=== PATIENT | female | born 2005 | race Caucasian/White ===

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

== ENCOUNTER 2023-02-02 14:14 | Outpatient (REF) | payer MEDICAID, SELFPAY ==
[2023-02-02 15:41] LABS: Anion Gap 12 (12-20); Blood Urea Nitrogen 14 mg/dL (9-16); Calcium 9.3 mg/dL (8.4-10.2); Carbon Dioxide 25 mmol/L (22-29); Chloride 106 mmol/L (96-108); Estimated Glomerular Filt Rate > 60; Glucose Random 90 mg/dL (60-115); Potassium 4.4 mmol/L (3.3-5.1); Sodium 139 mmol/L (135-145)
[2023-02-04 21:08] LABS: Prolactin 30.9 ng/mL
== END 2023-02-02 14:15 | disposition home or self-care (01) ==
LOC: HO.LAB 14:14
PROVIDERS: Visit Provider Psychiatry & Neurology Neurology
DX: G40.909 Epilepsy, unspecified, not intractable, without status epilepticus (principal)
CPT/HCPCS: 36415; 80048; 84146

== ENCOUNTER 2023-03-17 07:55 | Outpatient (REF) | payer MEDICAID, SELFPAY | END 2023-03-17 07:56 | disposition home or self-care (01) | LOC: HO.MRI 07:55 | PROVIDERS: PCP Registered Nurse; Visit Provider Psychiatry & Neurology Neurology | DX: D35.2 Benign neoplasm of pituitary gland (principal) | CPT/HCPCS: 70551 ==

== ENCOUNTER 2023-06-14 23:16 | Emergency (ER) | payer MEDICAID, SELFPAY ==
[2023-06-14 23:21] VITALS: BP 112/62; PULSE 84; RESP 16; TEMP 36.7; O2SAT 99; BMI 49.3
--- NOTE | 2023-06-15 00:30 | ED_ITS ---
HPI - Skin/Abscess/Foreign Bdy General Chief complaint: Skin/Abscess/Foreign Body Stated complaint: infect abscess Time Seen by Provider: 06/15/23 00:25 Source: patient and family Mode of arrival: ambulatory Limitations: no limitations History of Present Illness HPI narrative: Patient comes to the emergency room accompanied by her mother. Patient states that she has an abscess on the left groin area. Patient states it is red , warm to touch, very painful. Denies any discharge. Patient denies fever chills Related Data Home Medications Medication Instructions Recorded Confirmed melatonin 5 mg tablet 5 - 10 mg PO BEDTIME PRN Sleep 12/07/22 12/07/22 Previous Rx's Medication Instructions Recorded levetiracetam 1,000 mg tablet 1,000 mg PO BID #60 tabs 12/07/22 (Keppra) sulfamethoxazole 800 1 tab PO BID #14 tabs 06/15/23 mg-trimethoprim 160 mg tablet (Bactrim DS) Allergies Allergy/AdvReac Type Severity Reaction Status Date / Time No Known Allergies Allergy Verified 12/06/22 13:51 [No Known Allergies*] Review of Systems Review of Systems: Constitutional : No Weight loss, No Fever, No Chills, No Night Sweats, No Fatigue, No Malaise ENT/Mouth : No Hearing loss, No Ear Pain, No Nasal Congestion, No Sinus Pain, No Hoarseness, No sore throat, No Rhinorrhea, No Swallowing Difficulty Eyes: No Eye Pain, No Swelling, No Redness, No Foreign Body, No Discharge, No Vision Changes Cardiovascular : No Chest Pain, No SOB, No Dyspnea on Exertion, No Orthopnea, No Edema, No Palpitations Respiratory : No Cough, No Sputum, No Wheezing, No Smoke Exposure, No Dyspnea Gastrointestinal : No Nausea, No Vomiting, No Diarrhea, No Constipation, No abdominal Pain, No Hematochezia, No Melena Genitourinary : no irregular bleeding, No Dysuria, No Urinary Frequency, No Hematuria, No Urinary Incontinence, No Urgency, No Flank Pain, No Urinary Flow Changes, No Hesitancy Musculoskeletal : No joint pain, No Myalgias, No Joint Swelling Skin : Complaining of an abscess in the labs groin area Neuro : No Weakness, No Numbness, No Paresthesias, No Loss of Consciousness, No Dizziness, No Headache Psych : No Anxiety/Panic, No Depression, No SI/HI/AH/VH, No Social Issues, Heme/Lymph: No Bruising, No Bleeding,No Lymphadenopathy Endocrine : No Polyuria, No Polydipsia, No Temperature Intolerance [facility] Past Medical History Medical History Seizure disorder Asthma Surgical History No pertinent past surgical history Social History Social History (Updated 12/06/22 @ 21:29 by Radha Bradshaw MD) Household Members: Family Housing: Apartment Do you presently have visiting nurse or other home services: No Alcohol intake: never Patient Tobacco Use Status: Never used Tobacco e-Cigarette/Vaping Use: Never Used Advance Directives: No Advance Directives Information Provided: Yes service: No Current occupational status: disabled Physical Exam Vital Signs: Vital Signs: Last Vital Signs Temp 98.4 F 06/15/23 00:41 Pulse 98 06/15/23 00:41 Resp 16 06/15/23 00:41 BP 103/58 L 06/15/23 00:41 Pulse Ox 97 06/15/23 00:41 O2 Del Method Room Air 06/15/23 00:41 BMI result Body Mass Index 49.3 Const: Other: Appearance: Alert. Oriented X3. No acute distress. Eyes: Pupils equal, round and reactive to light. ENT: Pharynx normal. Neck: Normal inspection. Neck supple. No lymph nodes noted. No crepitus CVS: Normal heart rate and rhythm. Pulses normal. Normal S1 and S2 Respiratory: No respiratory distress. Breath sounds normal. No Wheezing. No rales Abdomen: Soft and nontender. No rigidity. No distention. Skin: Skin warm and dry. Patient has a furuncle in the suprapubic area in the left side. Bedside ultrasound does not show any fluid accumulation/abscess Extremities: No lower extremity edema. No Lacerations. No Rash Neuro: Oriented X 3. No motor deficit. No sensory deficit. Moving all extremities. No slurred speech. CN 2 through 12 grossly intact Psych: calm, cooperative, normal affect Course Course Course Narrative: -I discussed the physical exam with the patient and with her mother. At this time, it is not an abscess, there is no material that could possibly be drained. Patient has significant scarring from old abscesses/furuncles. Discussed with the patient to follow-up with her primary care physician, patient may need a referral to Dermatology. Patient was given the 1st dose of antibiotic in the ED. Medical Decision Making Medical Decision Making MDM Narrative: -patient is adamant that she is not . Patient was given the 1st dose of Bactrim DS in the ED Differential Diagnosis Differential Diagnoses: The differential diagnosis associated with the presentation includes (Furuncle, abscess, cellulitis) Discharge Plan Discharge Clinical Impression: Furuncle Patient Disposition: Home, Self-Care Instructions: Furunculosis and Carbunculosis (ED) Additional Instructions: Please follow-up with your primary care physician tomorrow. If you have any worsening or new symptoms, please return to the emergency room or call 911 Prescriptions: New sulfamethoxazole-trimethoprim [Bactrim DS] 800-160 mg tablet 1 tab PO BID Qty: 14 0RF No Action melatonin 5 mg Tablet 5 - 10 mg PO BEDTIME PRN (Reason: Sleep) levetiracetam [Keppra] 1,000 mg Tablet 1,000 mg PO BID Qty: 60 2RF
[2023-06-15 00:41] VITALS: BP 103/58; PULSE 98; RESP 16; TEMP 36.9; O2SAT 97
[2023-06-15] MEDS: Sulfamethox/Trimeth 800/160 TABLET 1 TAB PO (01:20)
--- NOTE | 2023-06-15 01:23 | PC.NURSE ---
pt a&o,no sob or chest pain, reviewed discharge instructions with pt. pt verbalized understanding.
== END 2023-06-15 01:25 | disposition home or self-care (01) ==
PROVIDERS: Emergency Provider Emergency Medicine
DX: L02.224 Furuncle of groin (principal); Z79.899 Other long term (current) drug therapy
CPT/HCPCS: 99283; 99284

== ENCOUNTER 2023-11-19 09:19 | Emergency (ER) | payer MEDICAID, SELFPAY ==
[2023-11-19 09:25] VITALS: BP 133/84; PULSE 79; RESP 16; TEMP 36.4; O2SAT 98; BMI 40.4
[2023-11-19 10:54] LABS: Appearance Urine Turbid; Color Urine Yellow; Glucose Urine UA Negative (Negative); Leukocyte Esterase Urine Large (3+) (Negative); Nitrite Urine Negative (Negative); PH 5.5 (5.0-9.0); UMIC TRIGGER UACC YES; Urine Blood Trace (Negative); Urine Ketones Negative (Negative); Urine Protein Trace mg/dL (Neg-Trace)
--- NOTE | 2023-11-19 10:54 | ED_ITS ---
HPI - Female Genitourinary General Chief complaint: Urogenital-Female Stated complaint: Genital issues Time Seen by Provider: 11/19/23 09:26 Source: patient and RN notes reviewed Mode of arrival: ambulatory Limitations: no limitations History of Present Illness HPI Narrative: This is a 18-year-old female, with no known medical problems, presenting to the emergency department complaints of vaginal itchiness, and fullness x2 days. Patient also endorses some dysuria, and urinary urgency. Denies frequency or hematuria. She states that her last menstrual period was November 04. She states that her menses are typically regular. She states that she has not been sexually active in the last 2 years. Denies risk of STI or . She denies using any [id number] medications at home to treat her current symptoms. Denies history of similar symptoms. She has never had a pelvic examination performed. She does not have an OBGYN. No other complaints or concerns at this time. MD elicited complaint: dysuria and pelvic pain (Pressure) Onset (ago): day(s) Severity: moderate Female Urogenital Radiation: Non-Radiating Consistency: constant Vaginal discharge: none Vaginal bleeding: none Urinary symptoms: Dysuria and Urgency Exacerbating factors: none Relieving factors: none Associated symptoms: denies other symptoms Treatment prior to arrival: none Sexual activity: No Patient : No Related Data Home Medications Medication Instructions Recorded Confirmed melatonin 5 mg tablet 5 - 10 mg PO BEDTIME PRN Sleep 12/07/22 12/07/22 Previous Rx's Medication Instructions Recorded levetiracetam 1,000 mg tablet 1,000 mg PO BID #60 tabs 12/07/22 (Keppra) sulfamethoxazole 800 1 tab PO BID #14 tabs 06/15/23 mg-trimethoprim 160 mg tablet (Bactrim DS) doxycycline hyclate 100 mg capsule 100 mg PO BID 14 days #28 caps 11/19/23 fluconazole 150 mg tablet 150 mg PO Q3D 2 doses #2 tabs 11/19/23 metronidazole 500 mg tablet 500 mg PO BID 14 days #28 tabs 11/19/23 Allergies Allergy/AdvReac Type Severity Reaction Status Date / Time No Known Allergies Allergy Verified 12/06/22 13:51 [No Known Allergies*] Review of Systems Review of Systems: Yes all other systems are reviewed and are negative Constitutional: Constitutional: Reports as per [facility] Past Medical History Attestation statement: The following information was validated with the patient. Medical History Seizure disorder Asthma Surgical History No pertinent past surgical history Social History Social History Household Members: Family Housing: Apartment Do you presently have visiting nurse or other home services: No Alcohol intake: never Patient Tobacco Use Status: Never used Tobacco e-Cigarette/Vaping Use: Never Used service: No Current occupational status: disabled Physical Exam Vital Signs: Vital Signs: Last Vital Signs Temp 98 F 11/19/23 12:00 Pulse 83 11/19/23 12:00 Resp 16 11/19/23 12:00 BP 126/77 11/19/23 12:00 Pulse Ox 100 11/19/23 12:00 O2 Del Method Room Air 11/19/23 12:00 BMI result Body Mass Index 40.4 Const: General: cooperative, comfortable and no acute distress Orientation/consciousness: patient oriented x3 Limitations: no limitations HEENT: Head: Yes normal to inspection, Yes normocephalic and Yes atraumatic Ears: hearing grossly normal bilaterally General nose exam: Normal external nose present Face and sinus: Yes normal facial exam Mouth: Normal oral and palatal mucosa present, oropharynx normal and moist mucous membranes Throat: Yes posterior oropharynx normal Eyes: General: appearance normal, both eyes and all related structures Eyelids: Yes eyelids normal Conjunctivae: conjunctivae normal Sclerae: sclerae normal Pupils: Equal, round and reactive pupils present EOM: EOMs intact bilaterally Neck: Neck: Yes normal visual inspection, Yes full ROM and Yes no lymphadenopathy Lymphatic: no lymphadenopathy noted Chest: Chest palpation & inspection: normal inspection of the chest Resp: Effort & Inspection: normal respiratory effort and able to speak in complete sentences Auscultation: clear to auscultation bilaterally, no crackles, no rales, no rhonchi and no wheezes Cardio: Rate: regular rate Rhythm: regular rhythm Heart sounds: S1 normal heart sound present and S2 normal heart sound present GI: Inspection: Yes normal to inspection : Other: Pelvic examination performed with mary Moreno present at all times. Patient has thick white vaginal discharge with mild vaginal edema noted in the vaginal vault. No bleeding, or lesions noted. Mild cervical motion tenderness. External Female Exam: normal appearance of the urethra Speculum Exam - Vagina: normal appearance of the vagina and normal palpation Speculum Exam - Cervix: normal appearance of the cervix and Cervical os closed Bimanual exam- vagina & uterus: normal palpation Skin: General skin exam: no rashes or lesions noted Trauma: no lacerations or abrasions Wounds: no wounds Neuro: General: patient oriented x3 and moves all extremities Cranial nerves: Yes Equal, round and reactive pupils present Extrem: General: Yes normal to inspection Right upper extremity: normal to inspection Left upper extremity: normal to inspection Right lower extremity: normal to inspection Left lower extremity: normal to inspection Medications Administered Discontinued Medications Generic Name Dose Route Start Last Admin Trade Name Freq PRN Reason Stop Dose Admin Ceftriaxone Sodium 500 mg/ 0 mg 11/19/23 12:11 11/19/23 12:32 Lidocaine HCl 1 ml IM 11/19/23 12:12 500 kit ONCE ONE Administration Medical Decision Making Medical Decision Making [facility] Narrative: This is a 18-year-old female presenting to the emergency department for evaluation of vaginal fullness in itchiness x2 days. On arrival, patient nontoxic appearing, vital signs within normal limits. Differential diagnoses include bacterial vaginosis, candidiasis, cystitis, pelvic inflammatory disease, pelvic mass. Less likely gonorrhea/chlamydia. Patient requesting HIV testing, also added syphilis. She is not sexually active at this time therefore unlikely. Pelvic examination with concerns for PID vs. samm. Will treat with both. Given return precautions. Pt stable for d/c. Differential Diagnosis Differential Diagnoses: The differential diagnosis associated with the presentation includes See above Admission/Observation Consideration of admission/observation: Escalation of care including admission/observation considered Patient would have been admitted to the hospital had her work up had any findings where hospital admission was appropriate and her clinical presentation warranted hospital admission. Lab Data [facility] Lab Attestation statement: I reviewed the patient's lab results. Urine is contaminated. Will await culture. Labs: Lab Results 11/19/23 11/19/23 11/19/23 Range/Units 10:24 10:45 12:07 Beta HCG, Quant < 2 mIU/mL Urine Color Yellow Urine Appearance Turbid Urine pH 5.5 (5.0-9.0) Ur Specific [place] 1.020 (1.005-1.025) Urine Protein Trace (Neg-Trace) mg/dL Urine Glucose (UA) Negative (Negative) mg/dL Urine Ketones Negative (Negative) mg/dL Urine Blood Trace H (Negative) Urine Nitrite Negative (Negative) Ur Leukocyte Esterase Large (3+) H (Negative) Urine RBC 3-5 H (0-2) /HPF Urine WBC >50 H (0-5) /HPF Ur Squamous Epith Cells 11-20 (0-2) /HPF Urine Bacteria 2+ (None Seen) Hyaline Casts 0-2 (0-2) /LPF Urine Test NEGATIVE (NEGATIVE) T.pallidum Ab (EIA) Nonreactive (Nonreactive) Chlam trachomat DNA PCR NOT DETECTED (Not Detect.) HIV 1&2 Ab/P24 Ag 4thGn Nonreactive (Nonreactive) N.gonorrhoeae DNA (PCR) NOT DETECTED (Not Detect.) Radiology Impression Discussion of test interpretation with radiology: I have reviewed the radiologist's reading. External Record Review External record reviewed: Inpatient record, Office record, Outpatient record, Prior outpatient labs, Prior outpatient radiology, Primary care record and Outside ED record Discharge Plan Discharge Clinical Impression: Vaginitis Patient Disposition: Home, Self-Care Instructions: Vaginal Discharge (ED) Additional Instructions: Your seen in the emergency department due to vaginal discomfort. You have evidence of yeast infection and possible pelvic inflammatory disease. I am treating you with several medications. It is very important that you take all medications prescribed to you today as directed. We will call you with any normal results from your pelvic examination performed today. It is very important that you see the OBGYN, I would call today to make an appointment. If any new or worsening symptoms occur including but not limited to worsening pain, itchiness, redness, swelling, chest pain, shortness of breath, fevers or chills, abdominal pain, please return for re-evaluation. Prescriptions: New fluconazole 150 mg tablet 150 mg PO Q3D Qty: 2 0RF Rx Instructions: may repeat second dose 72 hrs after first dose if symptoms persist doxycycline hyclate 100 mg capsule 100 mg PO BID 14 Days Qty: 28 0RF metronidazole 500 mg tablet 500 mg PO BID 14 Days Qty: 28 0RF No Action melatonin 5 mg Tablet 5 - 10 mg PO BEDTIME PRN (Reason: Sleep) levetiracetam [Keppra] 1,000 mg Tablet 1,000 mg PO BID Qty: 60 2RF sulfamethoxazole-trimethoprim [Bactrim DS] 800-160 mg tablet 1 tab PO BID Qty: 14 0RF Referrals: [facility] Services [Provider Group] Stand Alone Forms: Work/School Release Interventions: ED Discharge Assessment Last Done: 11/19/23 12:38 Discharge Date/Time: 11/19/23 12:38
[2023-11-19 10:55] LABS: UPreg QC Valid YES; Urine Pregnancy NEGATIVE (NEGATIVE)
[2023-11-19 11:00] LABS: HCG Quantitative < 2 mIU/mL
[2023-11-19 11:05] LABS: HIV AB/AG Nonreactive (Nonreactive); HIV Num 1 0.06 S/CO (0.00-0.99); Syphilis Screen Nonreactive (Nonreactive)
[2023-11-19 11:08] LABS: Bacteria Urine 2+ (None Seen); Hyaline Casts Urine 0-2 /LPF (0-2); UACC Culture Trigger YES; WBC Urine >50 /HPF (0-5)
[2023-11-19 12:00] VITALS: BP 126/77; PULSE 83; RESP 16; TEMP 36.6; O2SAT 100
[2023-11-19] MEDS: cefTRIAXone sodium 500 MG, Lidocaine HCl 1 % MPF 1 ML IM (12:32)
[2023-11-19 13:49] LABS: CT PCR NOT DETECTED (Not Detect.); NG PCR NOT DETECTED (Not Detect.)
[2023-11-20 12:05] LABS: BV Int Neg Control Negative (Negative); BV Int Pos Control Positive (Positive)
== END 2023-11-19 12:38 | disposition home or self-care (01) ==
PROVIDERS: Physician Assistant Medical; Emergency Provider Emergency Medicine
DX: N76.0 Acute vaginitis (principal)
CPT/HCPCS: 0353U; 36415; 81001; 81025; 84702; 86780; 87086; 87389; 87480; 87510; 87660; 96372; 99284; J0696

== ENCOUNTER 2023-11-20 09:34 | Emergency (ER) | payer MEDICAID, SELFPAY ==
[2023-11-20 09:52] VITALS: BP 123/78; PULSE 83; RESP 16; TEMP 36.2; O2SAT 99; BMI 58.6
--- NOTE | 2023-11-20 11:34 | ED_ITS ---
HPI - General Adult General Chief complaint: General Medical Stated complaint: Yeast infection Time Seen by Provider: 11/20/23 10:59 Source: patient Mode of arrival: ambulatory Limitations: no limitations History of Present Illness HPI narrative: 18-year-old female with a history of obesity presents the ER with complaints of vaginal yeast infection and skin infection. Patient reports she was seen here yesterday. She was diagnosed with vaginitis and was treated with fluconazole. She also is being treated currently for PID. She reports that she has a rash on both of her thighs and in her abdominal fold which is quite painful which prompted her to return to the emergency room. She believes that she needs a topical medication to treat this. Of note patient is obese. She reports that she has been tested several times for diabetes in his negative. She reports she was tested less than 1 year ago and had a normal A1c. Related Data Home Medications Medication Instructions Recorded Confirmed melatonin 5 mg tablet 5 - 10 mg PO BEDTIME PRN Sleep 12/07/22 12/07/22 Previous Rx's Medication Instructions Recorded levetiracetam 1,000 mg tablet 1,000 mg PO BID #60 tabs 12/07/22 (Keppra) sulfamethoxazole 800 1 tab PO BID #14 tabs 06/15/23 mg-trimethoprim 160 mg tablet (Bactrim DS) doxycycline hyclate 100 mg capsule 100 mg PO BID 14 days #28 caps 11/19/23 fluconazole 150 mg tablet 150 mg PO Q3D 2 doses #2 tabs 11/19/23 metronidazole 500 mg tablet 500 mg PO BID 14 days #28 tabs 11/19/23 clotrimazole 1 % topical cream 1 appl topical BID 4 weeks #30 11/20/23 grams nystatin 100,000 unit/gram topical 1 appl topical BID #30 grams 11/20/23 powder Allergies Allergy/AdvReac Type Severity Reaction Status Date / Time No Known Allergies Allergy Verified 12/06/22 13:51 [No Known Allergies*] Review of Systems Review of Systems: Yes all other systems are reviewed and are negative Constitutional: Constitutional: Reports no additional constitutional complaints, Denies body ache(s), Denies chills, Denies fever(s), Denies headache(s) and Denies weakness Eyes: Eyes: Reports no additional eye complaints and Denies change in vision ENT: Reports system reviewed and no additional complaints, except as documented, Denies dizziness, Denies headache(s), Denies nasal congestion, Denies nasal discharge and Denies neck pain Cardiovascular: Cardiovascular: Reports no additional cardiovascular complaints, Denies chest pain, Denies leg edema and Denies dyspnea Respiratory: Respiratory: Reports no additional respiratory complaints, Denies cough and Denies dyspnea Gastrointestinal: Gastrointestinal: Reports no additional gastrointestinal complaints, Denies abdominal pain, Denies diarrhea, Denies nausea and Denies vomiting Genitourinary: Genitourinary: Reports no additional female genitourinary complaints and Denies urinary incontinence Musculoskeletal: Musculoskeletal: Reports no additional musculoskeletal complaints, Denies back pain, Denies arthralgias, Denies joint swelling, Denies neck pain, Denies numbness and Denies tingling Integumentary/Breasts: Skin/Breast: Reports system reviewed and no additional complaints, except as docu and Reports rash Neurologic: Reports system reviewed and no additional complaints, except as documented, Denies Abnormal speech present, Denies dizziness, Denies headache(s), Denies numbness, Denies tingling and Denies weakness PMFSH Past Medical History Attestation statement: The following information was validated with the patient. Source: old records reviewed and nursing notes reviewed Medical History Seizure disorder Asthma Surgical History No pertinent past surgical history Social History Social History Household Members: Family Housing: Apartment Do you presently have visiting nurse or other home services: No Alcohol intake: never Patient Tobacco Use Status: Never used Tobacco e-Cigarette/Vaping Use: Never Used Advance Directives: No Advance Directives Information Provided: No service: No Current occupational status: disabled Physical Exam ED Vital Signs: Vital Signs - 24 hr 11/20/23 09:52 Temperature 97.2 F Pulse Rate 83 Respiratory Rate 16 Blood Pressure 123/78 Pulse Oximetry 99 Oxygen Delivery Method Room Air BMI result Body Mass Index 58.6 Const General: cooperative, healthy appearing, comfortable and no acute distress Orientation/consciousness: patient oriented x3 Limitations: no limitations HENMT Head: Yes normal to inspection Ears: hearing grossly normal bilaterally General nose exam: Normal external nose present Face and sinus: Yes normal facial exam Mouth: Normal oral and palatal mucosa present Throat: Yes posterior oropharynx normal Eyes General: appearance normal, both eyes and all related structures Pupils: Equal, round and reactive pupils present Neck Neck: Yes normal visual inspection Chest Chest palpation & inspection: normal inspection of the chest Resp Effort & Inspection: normal respiratory effort Auscultation: clear to auscultation bilaterally Cardio Rate: regular rate Rhythm: regular rhythm Peripheral pulses: Peripheral pulses 2+ throughout GI Inspection: Yes normal to inspection Palpation (GI): Soft to palpation and nontender Auscultation: normal bowel sounds Back/Spine/Pelvis Thoracic/Lumbar Spine: thoracic and lumbar spine normal to inspection Skin Other: erythema/excoriation to both upper/inner thighs and in her abdominal folds. No extension to the perineum Neuro General: patient oriented x3, no focal motor deficits and normal sensation to monofilament Cranial nerves: Yes Equal, round and reactive pupils present Cognition (Neuro): normal cognition Speech: No Abnormal speech present Gait exam (Neuro): Normal gait present Motor exam (neuro): 5/5 motor strength present throughout Extrem General: Yes normal to inspection Medical Decision Making Medical Decision Making MDM Narrative: 18-year-old female with a history of obesity presents the ER with complaints of vaginal yeast infection and skin infection. Patient reports she was seen here yesterday. She was diagnosed with vaginitis and was treated with fluconazole. She also is being treated currently for PID. She reports that she has a rash on both of her thighs and in her abdominal fold which is quite painful which prompted her to return to the emergency room. She believes that she needs a topical medication to treat this. Of note patient is obese. She reports that she has been tested several times for diabetes in his negative. She reports she was tested less than 1 year ago and had a normal A1c. erythema/excoriation to both upper/inner thighs and in her abdominal folds. No extension to the perineum Will add clotrimazole and nystatin Differential Diagnosis Differential Diagnoses: The differential diagnosis associated with the presentation includes skin yeast infection Low concern for necrotizing fasciitis, Olivire's gangrene Admission/Observation Consideration of admission/observation: Escalation of care including admission/observation considered Low concern for necrotizing fasciitis, Olivier's gangrene requiring urgent imaging and surgical consultation External Record Review External record reviewed: Outside ED record Prescription Management I considered prescription management with: Antibiotic Discharge Plan Discharge Clinical Impression: Skin yeast infection Patient Disposition: Home, Self-Care Instructions: Skin Yeast Infection (ED) Additional Instructions: Continue your other medications Apply the nystatin powder to the abdominal folds Apply the clotrimazole to the skin areas Prescriptions: New nystatin 100,000 unit/gram powder 1 appl topical BID Qty: 30 0RF clotrimazole 1 % cream 1 appl topical BID 28 Days Qty: 30 0RF No Action melatonin 5 mg Tablet 5 - 10 mg PO BEDTIME PRN (Reason: Sleep) levetiracetam [Keppra] 1,000 mg Tablet 1,000 mg PO BID Qty: 60 2RF sulfamethoxazole-trimethoprim [Bactrim DS] 800-160 mg tablet 1 tab PO BID Qty: 14 0RF fluconazole 150 mg tablet 150 mg PO Q3D Qty: 2 0RF Rx Instructions: may repeat second dose 72 hrs after first dose if symptoms persist doxycycline hyclate 100 mg capsule 100 mg PO BID 14 Days Qty: 28 0RF metronidazole 500 mg tablet 500 mg PO BID 14 Days Qty: 28 0RF Referrals: [facility] [Primary Care Provider] - 1 week Stand Alone Forms: Work/School Release Interventions: ED Discharge Assessment Last Done: 11/20/23 11:56 Discharge Date/Time: 11/20/23 11:56
== END 2023-11-20 11:56 | disposition home or self-care (01) ==
PROVIDERS: Emergency Provider Student in an Organized Health Care Education/Training Program
DX: R21 Rash and other nonspecific skin eruption (principal); N76.0 Acute vaginitis
CPT/HCPCS: 99283

== ENCOUNTER 2024-02-10 17:14 | Emergency (ER) | payer MEDICAID, SELFPAY ==
--- NOTE | 2024-02-10 17:38 | ED.GENADULT ---
HPI - General Adult General Chief complaint: Extremity Injury, Lower Stated complaint: left toe swollen Time Seen by Provider: 02/10/24 17:43 Source: patient Mode of arrival: ambulatory Limitations: no limitations History of Present Illness ED Provider: Shaneka AREVALO HPI narrative: 19 year old female pmh asthma, seizure disorder, obesity presents with left 1st digit toe pain after receiving a pedicure yesterday. Rates the pain a 4/10. Reports the lady accidentally cut her. No fevers, chills, nausea, vomiting, difficulty moving toes, numbness, tingling, drainage, cp, sob Related Data Home Medications ?Medication ?Instructions ?Recorded ?Confirmed melatonin 5 mg tablet 5 - 10 mg PO BEDTIME PRN Sleep 12/07/22 12/07/22 Previous Rx's ?Medication ?Instructions ?Recorded levetiracetam 1,000 mg tablet 1,000 mg PO BID #60 tabs 12/07/22 (Keppra) sulfamethoxazole 800 1 tab PO BID #14 tabs 06/15/23 mg-trimethoprim 160 mg tablet (Bactrim DS) doxycycline hyclate 100 mg capsule 100 mg PO BID 14 days #28 caps 11/19/23 fluconazole 150 mg tablet 150 mg PO Q3D 2 doses #2 tabs 11/19/23 metronidazole 500 mg tablet 500 mg PO BID 14 days #28 tabs 11/19/23 clotrimazole 1 % topical cream 1 appl topical BID 4 weeks #30 11/20/23 grams nystatin 100,000 unit/gram topical 1 appl topical BID #30 grams 11/20/23 powder cephalexin 500 mg tablet 500 mg PO Q6H 10 days #40 tabs 02/10/24 doxycycline hyclate 100 mg capsule 100 mg PO BID 10 days #20 caps 02/10/24 Allergies Allergy/AdvReac Type Severity Reaction Status Date / Time No Known Allergies Allergy Verified 02/10/24 17:41 [No Known Allergies*] Review of Systems Review of Systems: Yes all other systems are reviewed and are negative PMFSH Past Medical History Attestation statement: The following information was validated with the patient. Source: old records reviewed and nursing notes reviewed Medical History Seizure disorder Asthma Surgical History No pertinent past surgical history Social History Social History Household Members: Family Housing: Apartment Do you presently have visiting nurse or other home services: No Alcohol intake: never Patient Tobacco Use Status: Never used Tobacco e-Cigarette/Vaping Use: Never Used service: No Current occupational status: disabled Physical Exam ED Vital Signs: Vital Signs - 24 hr 02/10/24 17:39 Temperature 97.8 F Pulse Rate 77 Respiratory Rate 18 Blood Pressure 144/88 H Pulse Oximetry 100 Oxygen Delivery Method Room Air BMI result Body Mass Index 50.3 vss Appearance: Alert.? Oriented X3.? No acute distress.? Head: Normocephalic, atraumatic, no step-offs or deformities Eyes: Pupils equal, round and reactive to light.? CVS: Normal heart rate and rhythm.? Pulses normal.? Respiratory: No respiratory distress.? Breath sounds normal.? Abdomen: Soft and nontender.? Skin: Skin warm and dry.? Normal skin color.? Normal skin turgor.?+ left great toe w/ erythema & warmth surrounding cuticle. Extremities: No lower extremity edema.? No calf ttp. 5/5 strength to bilateral upper and lower extremities 2+ DP,AT,PT equal and bl Back: No midline tenderness, no C-spine tenderness, full range of motion, no CVA tenderness bilaterally Neuro: Oriented X 3.? No motor deficit.? No sensory deficit. CN 2-12 intact Course Course Course Narrative: This is an RME done by BO Edmondson: Additional HPI, ROS, PE not included below will be deferred to primary provider. 19 year old female pmh asthma, seizure disorder, obesity presents with left 1st digit toe pain after receiving a pedicure yesterday. Rates the pain a 4/10. Reports the lady accidentally cut her. No fevers, chills, nausea, vomiting, difficulty moving toes, numbness, tingling, drainage, cp, sob Medical Decision Making Medical Decision Making MDM Narrative: 19 yo f presents w/ toe pain sp pedicure PE left great toe w/ erythema & warmth surrounding cuticle. Concerns for cellulitis with paronychia. No signs of abscess. No signs of gangrene, necrotizing infection, threat to Bolanos or neurovascular compromise. Plan will discharge from triage with antibiotics. Patient agreeable to this. Educated patient on diagnosis and treatment plan, answered all question, patient verbalizes understanding. At this time patient will be discharged home, advised to return with new or worsening symptoms. Educated on worrisome signs and symptoms and when to return. At this time I feel comfortable discharge home. Differential Diagnosis Differential Diagnoses: The differential diagnosis associated with the presentation includes Concerns for cellulitis with paronychia. No signs of abscess. No signs of gangrene, necrotizing infection, threat to Bolanos or neurovascular compromise. Admission/Observation Consideration of admission/observation: Escalation of care including admission/observation considered External Record Review External record reviewed: Office record, Outpatient record, Prior outpatient labs, Prior outpatient radiology and Primary care record Prescription Management I considered prescription management with: Antibiotic Discharge Plan Discharge Clinical Impression: Cellulitis, Paronychia of great toe Patient Disposition: Home, Self-Care Instructions: Paronychia (ED), Cellulitis (ED) Additional Instructions: Take your medications as prescribed. If you were prescribed antibiotics today, it is important that you take your medication to their entirety, do not skip any doses, do not finish them early. Follow-up with your primary care provider this week. Return to the emergency department with new or worsening symptoms. In case of emergency call 911 Prescriptions: New doxycycline hyclate 100 mg capsule 100 mg PO BID 10 Days Qty: 20 0RF cephalexin 500 mg tablet 500 mg PO Q6H 10 Days Qty: 40 0RF No Action melatonin 5 mg Tablet 5 - 10 mg PO BEDTIME PRN (Reason: Sleep) levetiracetam [Keppra] 1,000 mg Tablet 1,000 mg PO BID Qty: 60 2RF sulfamethoxazole-trimethoprim [Bactrim DS] 800-160 mg tablet 1 tab PO BID Qty: 14 0RF fluconazole 150 mg tablet 150 mg PO Q3D Qty: 2 0RF Rx Instructions: may repeat second dose 72 hrs after first dose if symptoms persist doxycycline hyclate 100 mg capsule 100 mg PO BID 14 Days Qty: 28 0RF metronidazole 500 mg tablet 500 mg PO BID 14 Days Qty: 28 0RF nystatin 100,000 unit/gram powder 1 appl topical BID Qty: 30 0RF clotrimazole 1 % cream 1 appl topical BID 28 Days Qty: 30 0RF Referrals: Physician,Unknown J [Primary Care Provider] - 2 days Print Language: [place]
[2024-02-10 17:39] VITALS: BP 144/88; PULSE 77; RESP 18; TEMP 36.6; O2SAT 100; BMI 50.3
[2024-02-10 17:50] VITALS: BP 144/88; PULSE 77; RESP 18; TEMP 36.6; O2SAT 100
== END 2024-02-10 17:54 | disposition home or self-care (01) ==
LOC: HO.ED 17:48
PROVIDERS: Emergency Provider Emergency Medicine
DX: L03.032 Cellulitis of left toe (principal); M79.675 Pain in left toe(s)
CPT/HCPCS: 99282; 99283

== ENCOUNTER 2024-02-29 09:34 | Emergency (ER) | payer MEDICAID, SELFPAY ==
[2024-02-29 09:46] VITALS: BP 138/86; PULSE 83; RESP 18; TEMP 36.5; O2SAT 100; BMI 50.4
[2024-02-29 11:28] VITALS: BP 131/73; PULSE 78; RESP 16; O2SAT 100
--- NOTE | 2024-02-29 11:54 | ED.HA ---
HPI - Headache General Chief Complaint: Headache Stated Complaint: headaches Time Seen by Provider: 02/29/24 11:54 Source: patient Mode of arrival: ambulatory Limitations: no limitations History of Present Illness ED Provider: Dr. Renato Hill HPI Narrative: 19-year-old female with a history of migraine headaches, seizure disorder presents emergency department for evaluation of a migraine headache. She states that she gets them rarely but has had to come to the emergency department in the past for a migraine headache. She states that she was having her eyes examined 1 week prior and when they put drops in her eyes she immediately developed a headache. She states that the headache is been constant since onset. Pain is located on the left side of her head in the temporal area. She states it has a constant pounding sensation which is 9/10 at its worst. Patient took Tylenol with no relief for the pain. Patient states she feels lightheaded and dizzy with the pain. She was photophobia and phonophobia. She has no numbness weakness, or other concerning associated symptoms. She has had no fever, chills, sore throat, cough, nausea, vomiting, myalgias arthralgias. Related Data Home Medications ?Medication ?Instructions ?Recorded ?Confirmed melatonin 5 mg tablet 5 - 10 mg PO BEDTIME PRN Sleep 12/07/22 12/07/22 Previous Rx's ?Medication ?Instructions ?Recorded levetiracetam 1,000 mg tablet 1,000 mg PO BID #60 tabs 12/07/22 (Keppra) sulfamethoxazole 800 1 tab PO BID #14 tabs 06/15/23 mg-trimethoprim 160 mg tablet (Bactrim DS) doxycycline hyclate 100 mg capsule 100 mg PO BID 14 days #28 caps 11/19/23 fluconazole 150 mg tablet 150 mg PO Q3D 2 doses #2 tabs 11/19/23 metronidazole 500 mg tablet 500 mg PO BID 14 days #28 tabs 11/19/23 clotrimazole 1 % topical cream 1 appl topical BID 4 weeks #30 11/20/23 grams nystatin 100,000 unit/gram topical 1 appl topical BID #30 grams 11/20/23 powder cephalexin 500 mg tablet 500 mg PO Q6H 10 days #40 tabs 02/10/24 doxycycline hyclate 100 mg capsule 100 mg PO BID 10 days #20 caps 02/10/24 [id number] 250 2 tab PO Q6H PRN headache #30 tabs 02/29/24 mg-250 mg-65 mg tablet (Excedrin Migraine) diphenhydramine HCl 25 mg capsule 50 mg (2 x 25 mg) PO Q6H PRN 02/29/24 headache, nausea, vomiting #20 caps metoclopramide HCl 10 mg tablet 10 mg PO Q6H PRN nausea and 02/29/24 (Reglan) vomiting #14 tabs Allergies Allergy/AdvReac Type Severity Reaction Status Date / Time No Known Allergies Allergy Verified 02/29/24 09:47 [No Known Allergies*] Review of Systems Review of Systems: Yes all other systems are reviewed and are negative [facility] Past Medical History [facility] Narrative: Past medical history: Migraine headaches, seizures. Social history: She denies tobacco, alcohol and drug use. Medical History Seizure disorder Asthma Surgical History No pertinent past surgical history Social History Social History Household Members: Family Housing: Apartment Do you presently have visiting nurse or other home services: No Alcohol intake: never Patient Tobacco Use Status: Never used Tobacco Smoked in Last 30 Days: No e-Cigarette/Vaping Use: Never Used Use of substances other than those prescribed or required for medical reasons: No Advance Directives: No Advance Directives Information Provided: No Patient : No service: No Current occupational status: disabled Physical Exam Vital Signs: Vital Signs: Last Vital Signs Temp 97.7 F 02/29/24 09:46 Pulse 78 02/29/24 11:28 Resp 16 02/29/24 11:28 BP 131/73 02/29/24 11:28 Pulse Ox 100 02/29/24 11:28 O2 Del Method Room Air 02/29/24 11:28 BMI result Body Mass Index 50.4 Initial vital signs were normal. Exam: General: Awake, alert in no distress Head: Normocephalic, atraumatic EENT: PERRL, Lids normal, sclera normal, conjunctiva normal, nose normal , ears normal, throat without erythema or exudates Neck: Supple, no adenopathy Lung: breath sounds symmetric, no wheezing, rales or rhonchi Chest: symmetric movement, nontender Heart: regular rate and rhythm, normal S1, S2 no murmurs or rubs Abdomen: soft, non-tender, nondistended, normal bowel sounds Back: no vertebral tenderness, no CVAT Extremities: no deformities, moves all extremities symmetrically Neuro: Awake, alert, oriented, normal speech, cranial nerves intact, moves all extremities symmetrically Psych: Pleasant, cooperative Medications Administered Discontinued Medications Generic Name Dose Route Start Last Admin Trade Name Freq PRN Reason Stop Dose Admin Diphenhydramine HCl 50 mg 02/29/24 12:03 02/29/24 12:36 Diphenhydramine Hcl 50 Mg/Ml Vial IVPUSH 02/29/24 12:04 50 mg ONCE STA Administration Sodium Chloride 1,000 mls @ 999 mls/hr 02/29/24 12:03 02/29/24 12:36 Ns IV 02/29/24 13:03 999 mls/hr .Q1H1M STA Administration Ketorolac Tromethamine 15 mg 02/29/24 12:03 02/29/24 12:36 Ketorolac Tromethamine 15 Mg/Ml Vial IVPUSH 02/29/24 12:04 15 mg ONCE STA Administration Metoclopramide HCl 10 mg 02/29/24 12:03 02/29/24 12:36 Metoclopramide Hcl 10 Mg/2 Ml Vial IVPUSH 02/29/24 12:04 10 mg ONCE STA Administration Medical Decision Making Medical Decision Making [facility] Narrative: 19-year-old female with a history of migraines seizures who presents emergency department for evaluation of 1 week of constant, pounding, left-sided headache associated with dizziness, photophobia and phonophobia with no nausea, vomiting, numbness, weakness or systemic symptoms. Physical examination revealed a normal vital signs. Physical examination was unremarkable. Differential diagnosis: ?Includes but is not limited to stroke, subarachnoid hemorrhage, meningitis, giant cell arteritis, migraine headache, nonspecific headache Patient was initially treated with the following: IV insert, normal saline x1 L, Reglan 10 mg IV, Benadryl 50 mg IV Course: 13:17 The patient had complete relief of her migraine headache with the above treatment. Patient was discharged home with prescriptions for Reglan, Benadryl and Excedrin migraine. She was given printed and verbal instructions at the time of discharge Admission/Observation Consideration of admission/observation: Escalation of care including admission/observation considered Prescription Management I considered prescription management with: Pain Medication and Other Chronic Conditions Patient?s care impacted by: Other (Migraine headaches, seizure disorder) Discharge Plan Discharge Clinical Impression: Migraine Patient Disposition: Home, Self-Care Additional Instructions: Your symptoms are consistent with a migraine.I want you to take the following 3 medications together every 6 hours as needed for headache, nausea or vomiting. ?Reglan (metoclopramide) in 10 mg, 1 pill Benadry (diphenhydramine) l 25 mg, 2 pills Excedrin migraine (acetaminophen, aspirin, caffeine), 2 pills. After you take these medications, lie down in a dark quiet room and try to fall asleep. ?These medications will make you sleepy, do not drive or work after taking these medications. Follow-up with your doctor in 2 days. Please return to the emergency department if your symptoms get worse or if you develop any symptoms that are concerning to you. Prescriptions: New diphenhydramine HCl 25 mg capsule 50 mg PO Q6H PRN (Reason: headache, nausea, vomiting) Qty: 20 0RF Excedrin Migraine 250-250-65 mg tablet 2 tab PO Q6H PRN (Reason: headache) Qty: 30 0RF metoclopramide HCl [Reglan] 10 mg tablet 10 mg PO Q6H PRN (Reason: nausea and vomiting) Qty: 14 0RF No Action melatonin 5 mg Tablet 5 - 10 mg PO BEDTIME PRN (Reason: Sleep) levetiracetam [Keppra] 1,000 mg Tablet 1,000 mg PO BID Qty: 60 2RF sulfamethoxazole-trimethoprim [Bactrim DS] 800-160 mg tablet 1 tab PO BID Qty: 14 0RF fluconazole 150 mg tablet 150 mg PO Q3D Qty: 2 0RF Rx Instructions: may repeat second dose 72 hrs after first dose if symptoms persist doxycycline hyclate 100 mg capsule 100 mg PO BID 14 Days Qty: 28 0RF metronidazole 500 mg tablet 500 mg PO BID 14 Days Qty: 28 0RF nystatin 100,000 unit/gram powder 1 appl topical BID Qty: 30 0RF clotrimazole 1 % cream 1 appl topical BID 28 Days Qty: 30 0RF doxycycline hyclate 100 mg capsule 100 mg PO BID 10 Days Qty: 20 0RF cephalexin 500 mg tablet 500 mg PO Q6H 10 Days Qty: 40 0RF Print Language: [place]
[2024-02-29] MEDS: 0.9 % Sodium Chloride 1,000 ML 999 ML IV (12:36)
[2024-02-29] MEDS: Metoclopramide HCl 10 MG/2 ML VIAL IVPUSH (12:36)
[2024-02-29] MEDS: diphenhydrAMINE HCL 50 MG/ML VIAL IVPUSH (12:36)
[2024-02-29] MEDS: Ketorolac Tromethamine 15 MG/ML VIAL IVPUSH (12:36)
[2024-02-29 13:30] VITALS: BP 136/84; PULSE 87; RESP 16; TEMP 36.4; O2SAT 100
== END 2024-02-29 13:31 | disposition home or self-care (01) ==
PROVIDERS: Emergency Provider Emergency Medicine Emergency Medical Services
DX: G43.909 Migraine, unspecified, not intractable, without status migrainosus (principal); Z79.899 Other long term (current) drug therapy
CPT/HCPCS: 96374; 96375; 99284; J1200; J1885; J2765

== ENCOUNTER 2024-05-19 09:15 | Emergency (ER) | payer MEDICAID, SELFPAY ==
[2024-05-19 09:26] VITALS: BP 124/78; PULSE 92; RESP 18; TEMP 36.8; O2SAT 100; BMI 51.7
--- NOTE | 2024-05-19 10:31 | ED_ITS ---
HPI - Skin/Abscess/Foreign Bdy General Chief complaint: Skin/Abscess/Foreign Body Stated complaint: Cyst Inner L Thigh Time Seen by Provider: 05/19/24 09:42 Source: patient Mode of arrival: ambulatory Limitations: no limitations History of Present Illness ED Provider: MONICA MORALES PA-C HPI narrative: 19 year old female with no significant past medical history presents to the ED today for evaluation of abscess to left thigh x3 days. States the areas painful especially when her thighs rub together. Reports history of similar requiring oral antibiotics. Has never followed up with water taxi driver or general surgeon. Denies fever, chills, nausea or vomiting, drainage from the area. Related Data Home Medications ?Medication ?Instructions ?Recorded ?Confirmed melatonin 5 mg tablet 5 - 10 mg PO BEDTIME PRN Sleep 12/07/22 12/07/22 Previous Rx's ?Medication ?Instructions ?Recorded levetiracetam 1,000 mg tablet 1,000 mg PO BID #60 tabs 12/07/22 (Keppra) sulfamethoxazole 800 1 tab PO BID #14 tabs 06/15/23 mg-trimethoprim 160 mg tablet (Bactrim DS) doxycycline hyclate 100 mg capsule 100 mg PO BID 14 days #28 caps 11/19/23 fluconazole 150 mg tablet 150 mg PO Q3D 2 doses #2 tabs 11/19/23 metronidazole 500 mg tablet 500 mg PO BID 14 days #28 tabs 11/19/23 clotrimazole 1 % topical cream 1 appl topical BID 4 weeks #30 11/20/23 grams nystatin 100,000 unit/gram topical 1 appl topical BID #30 grams 11/20/23 powder cephalexin 500 mg tablet 500 mg PO Q6H 10 days #40 tabs 02/10/24 doxycycline hyclate 100 mg capsule 100 mg PO BID 10 days #20 caps 02/10/24 najfwcz-frjdlojtibwav-teydgzvl 250 2 tab PO Q6H PRN headache #30 tabs 02/29/24 mg-250 mg-65 mg tablet (Excedrin Migraine) diphenhydramine HCl 25 mg capsule 50 mg (2 x 25 mg) PO Q6H PRN 02/29/24 headache, nausea, vomiting #20 caps metoclopramide HCl 10 mg tablet 10 mg PO Q6H PRN nausea and 02/29/24 (Reglan) vomiting #14 tabs cephalexin 500 mg capsule 500 mg PO QID 7 days #28 caps 05/19/24 doxycycline hyclate 100 mg capsule 100 mg PO BID 7 days #14 caps 05/19/24 Allergies Allergy/AdvReac Type Severity Reaction Status Date / Time No Known Allergies Allergy Verified 05/19/24 09:29 [No Known Allergies*] Review of Systems Review of Systems: Constitutional: No fever, chills, fatigue, night sweats, weight changes ENT/Mouth: No ear pain, hearing loss, nasal congestion, sinus pain, rhinorrhea, sore throat Eyes: No eye pain, swelling, redness, vision changes, discharge Cardio: No chest pain, palpitations, METZGER, orthopnea, peripheral edema Pulm: No SOB, cough, sputum, wheezing, dyspnea, hemoptysis GI: No nausea, vomiting, hematemesis, abdominal pain, diarrhea, constipation, hematochezia, melena : No irregular bleeding, dysuria, frequency, urgency, hesitancy, hematuria, flank pain, urinary flow changes, urinary incontinence or retention MSK: No back pain, neck pain, joint pain, myalgias Skin: No lesions, rashes, +abscess to left thigh Neuro: No weakness, numbness, paresthesias, LOC, dizziness, headache Psych: No anxiety/panic, depression, SI/HI, AH/VH All other systems reviewed and are negative. [facility] Past Medical History Attestation statement: The following information was validated with the patient. Source: old records reviewed and nursing notes reviewed Medical History Seizure disorder Asthma Surgical History No pertinent past surgical history Social History Social History Household Members: Family Housing: Apartment Do you presently have visiting nurse or other home services: No Alcohol intake: never Patient Tobacco Use Status: Never used Tobacco e-Cigarette/Vaping Use: Never Used Advance Directives: No Advance Directives Information Provided: Yes Do you have a plan to hurt others: No Plan service: No Current occupational status: disabled Physical Exam Vital Signs: Vital Signs: Last Vital Signs Temp 98.2 F 05/19/24 11:08 Pulse 92 05/19/24 11:08 Resp 18 05/19/24 11:08 BP 124/78 05/19/24 11:08 Pulse Ox 100 05/19/24 11:08 O2 Del Method Room Air 05/19/24 11:08 BMI result Body Mass Index 51.7 Vitals stable, afebrile General: Well appearing, in no acute distress. Skin: small 1cm1cm area of induration with central fluctuance and pointing noted to medial aspect of left thigh, small area of surrounding erythema. ttp. no streaking. Head: Normocephalic, atraumatic. Cardiac: Chest wall symmetric. RRR. No MRG. No JVD. Lungs: Normal respiratory effort without accessory muscle use. CTA bilaterally. No rales, rhonchi, or wheezes.? Neuro: AOx3. Normal speech. Ambulating with steady gait. Psych: Appropriate mood and affect. Responds appropriately to questions. Course Course Course Narrative: 1035 --patient tells me she has history of similar abscesses to her inner thighs and armpits. I have suspicion for underlying hidradenitis suppurativa. I will provide her with referral to Dermatology for follow-up. Advised her to call to schedule an appointment. At this time, will send Keflex and doxycycline to pharmacy for treatment. I was able to express a small amount of fluid from the abscess using 18 gauge needle and culture was sent to lab. The area was cleaned and dressed. Advised patient we will call her if her antibiotics need to be adjusted. Patient has remained stable throughout ED visit today. Discussed worrisome signs and symptoms and when to return to the ED. All questions answered at this time. Patient is agreeable with disposition and stable for discharge. Medications Administered Discontinued Medications Generic Name Dose Route Start Last Admin Trade Name Freq PRN Reason Stop Dose Admin Acetaminophen 975 mg 05/19/24 10:29 05/19/24 10:35 Acetaminophen 325 Mg Tablet PO 05/19/24 10:30 975 mg ONCE ONE Administration Medical Decision Making Medical Decision Making [facility] Narrative: 19 year old female with no significant past medical history presents to the ED today for evaluation of abscess to left thigh x3 days. Vital signs stable, afebrile. She is nontoxic-appearing and in no acute distress. On exam, there is a small 1cm1cm area of induration with central fluctuance and pointing noted to medial aspect of left thigh, small area of surrounding erythema. ttp. no streaking. Differential diagnosis includes cellulitis, abscess, folliculitis. unlikely deep soft tissue infection. Plan for culture swab and disposition. Labs/ imaging not warranted at this time. Differential Diagnosis Differential Diagnoses: The differential diagnosis associated with the presentation includes As above Admission/Observation Not indicated External Record Review External record reviewed: Inpatient record Prescription Management I considered prescription management with: Pain Medication (Tylenol, ibuprofen) and Antibiotic (Keflex, doxycycline) Social Determinants Patient?s care significantly limited by Social Determinants of Health including: Other Social Determinant of Health Procedures Abscess I/D Site: lower extremity (thigh) Side (if applicable): left Technique: needle aspiration Amount of fluid expressed (mL): 2 Sent for culture/gram staining?: Yes Irrigation: Yes Packing used?: none Critical Care Time Critical Care Time Critical Care Time: No Discharge Plan Discharge Clinical Impression: Abscess of left thigh Patient Disposition: Home, Self-Care Instructions: Abscess (ED), Abscess Incision and Drainage (DC) Additional Instructions: You were evaluated in the ED today for an abscess.? Please keep the area surrounding the abscess clean and dry. You will be given a prescription for antibiotics (Keflex and Doxycycline). Please take the antibiotics as directed for the full course of the medication. A sample has been sent to the lab for further evaluation. If your antibiotics need to be adjusted, we will call you in a few days. I recommend you take 600mg ibuprofen every 6 hours or Tylenol 650mg every 6 hours as needed for pain. If needed, you can alternate these medications so that you take one medication every 3 hours. For example, at noon take ibuprofen, then at 3pm take Tylenol, then at 6pm take ibuprofen. Please schedule an appointment with your primary care provider as soon as possible for follow up. You have also been provided with a referral to a general surgeon. You may call them to establish care. They will not call you. You have also been provided with a referral to a water taxi driver. Please call them to make an appointment. They will not call you. Return to the Emergency Department if you experience fevers greater than 100.4F, increase in area of redness or swelling, increasing amount of discharge from the area, increased tenderness around the area, or any other concerning symptoms. Prescriptions: New cephalexin 500 mg capsule 500 mg PO QID 7 Days Qty: 28 0RF doxycycline hyclate 100 mg capsule 100 mg PO BID 7 Days Qty: 14 0RF No Action melatonin 5 mg Tablet 5 - 10 mg PO BEDTIME PRN (Reason: Sleep) levetiracetam [Keppra] 1,000 mg Tablet 1,000 mg PO BID Qty: 60 2RF diphenhydramine HCl 25 mg capsule 50 mg PO Q6H PRN (Reason: headache, nausea, vomiting) Qty: 20 0RF Excedrin Migraine 250-250-65 mg tablet 2 tab PO Q6H PRN (Reason: headache) Qty: 30 0RF metoclopramide HCl [Reglan] 10 mg tablet 10 mg PO Q6H PRN (Reason: nausea and vomiting) Qty: 14 0RF sulfamethoxazole-trimethoprim [Bactrim DS] 800-160 mg tablet 1 tab PO BID Qty: 14 0RF fluconazole 150 mg tablet 150 mg PO Q3D Qty: 2 0RF Rx Instructions: may repeat second dose 72 hrs after first dose if symptoms persist doxycycline hyclate 100 mg capsule 100 mg PO BID 14 Days Qty: 28 0RF metronidazole 500 mg tablet 500 mg PO BID 14 Days Qty: 28 0RF nystatin 100,000 unit/gram powder 1 appl topical BID Qty: 30 0RF clotrimazole 1 % cream 1 appl topical BID 28 Days Qty: 30 0RF doxycycline hyclate 100 mg capsule 100 mg PO BID 10 Days Qty: 20 0RF cephalexin 500 mg tablet 500 mg PO Q6H 10 Days Qty: 40 0RF Referrals: [facility] [facility] [Provider Group] Crissy Cabrera PA-C [Physician Director Clinical Applications] - Asmita Abdi PA [Physician Director Clinical Applications] - Interventions: ED Discharge Assessment Last Done: 05/19/24 11:08 Discharge Date/Time: 05/19/24 11:08 Print Language: Monegasque
[2024-05-19] MEDS: Acetaminophen 325 MG TABLET 975 MG PO (10:35)
[2024-05-19 11:08] VITALS: BP 124/78; PULSE 92; RESP 18; TEMP 36.8; O2SAT 100
== END 2024-05-19 11:08 | disposition home or self-care (01) ==
PROVIDERS: Emergency Provider Emergency Medicine Emergency Medical Services
DX: L02.416 Cutaneous abscess of left lower limb (principal)
CPT/HCPCS: 10160; 87070; 87205; 99283; 99284

== ENCOUNTER 2024-07-21 09:57 | Outpatient (REF) | payer MEDICAID, SELFPAY ==
[2024-07-21 11:49] LABS: Basophils Percent Auto 0.3 % (0-2); Eosinophils Absolute Auto 0.2 X10*3/uL (0.0-0.4); Eosinophils Percent Auto 2.1 % (0-4); Hematocrit 39.7 % (37.0-47.0); Hemoglobin 13.1 g/dl (12.0-16.0); Imm Gran Abs Auto 0.03 X10*3/uL (0.00-0.03); Imm Gran Pct Auto 0.4 % (0.0-0.4); Lymphocytes Absolute Auto 1.5 X10*3/uL (1.2-4.9); MANUAL DIFF FLAG NO; Mean Corpuscular Hemoglobin 30.3 pg (27.0-33.0); Mean Corpuscular Volume 91.7 fL (80.0-98.0); Mean Platelet Volume 10.5 fL (9.4-12.3); Monocytes Absolute Auto 0.6 X10*3/uL (0.1-1.2); Neutrophils Absolute Auto 4.9 x10*3/uL (2.0-8.3); Neutrophils Percent Auto 68.2 % (45-73); Platelet Count 282 X10*3/uL (160-400); Red Blood Count 4.33 X10*6/uL (4.20-5.50); Red Cell Distribution Width 13.2 % (11.0-16.0); White Blood Count 7.1 X10*3/uL (4.8-10.8)
[2024-07-21 12:09] LABS: Estimated Average Glucose 94 mg/dL; Hemoglobin A1C 106.1659 umol/L; Hemoglobin A1c % 4.9 % (<6.0); Total Hemoglobin (HGBA1C) 3503.6219 umol/L
[2024-07-21 12:38] LABS: Alanine Aminotransferase 47 U/L (0-31); Albumin Level 4.4 g/dL (3.5-5.0); Alkaline Phosphatase 49 U/L (39-117); Anion Gap 14 (12-20); Aspartate Amino Transferase 42 U/L (5-31); Bilirubin Total 0.3 mg/dL (0.0-1.0); Blood Urea Nitrogen 9 mg/dL (9-16); Calcium 9.9 mg/dL (8.4-10.2); Carbon Dioxide 24 mmol/L (22-29); Chloride 104 mmol/L (96-108); Cholesterol 174 mg/dL (<200); Estimated Glomerular Filt Rate > 60; Glucose Random 75 mg/dL (60-115); HDL Cholesterol 52 mg/dL (>40); LDL Cholesterol Calculated 90 mg/dL (<100); Potassium 3.9 mmol/L (3.3-5.1); Sodium 138 mmol/L (135-145); Total Protein 7.5 g/dL (6.5-8.0); Triglycerides 160 mg/dL (<150)
[2024-07-21 12:40] LABS: TSH reflex Free T4 4.77 uIU/mL (0.32-4.0); Vitamin D 25-OH Total 20.4 ng/mL (>30)
== END 2024-07-21 09:58 | disposition home or self-care (01) ==
LOC: HO.HHCL 09:57
PROVIDERS: Visit Provider Nurse Practitioner
DX: E66.01 Morbid (severe) obesity due to excess calories (principal); Z68.43 Body mass index [BMI] 50.0-59.9, adult
CPT/HCPCS: 36415; 80053; 80061; 82306; 83036; 84439; 84443; 85025

== ENCOUNTER 2024-08-17 08:49 | Outpatient (REF) | payer MEDICAID, SELFPAY ==
[2024-08-18 23:53] LABS: Prolactin 57.1 ng/mL
== END 2024-08-17 08:50 | disposition home or self-care (01) ==
LOC: HO.LAB 08:49
PROVIDERS: Visit Provider Psychiatry & Neurology Neurology
DX: D35.2 Benign neoplasm of pituitary gland (principal)
CPT/HCPCS: 36415; 84146

== ENCOUNTER → 2024-10-13 11:00 | Outpatient (BNV) | payer MEDICAID, SELFPAY | PROVIDERS: Visit Provider Physician Assistant Surgical | DX: M46.90 Unspecified inflammatory spondylopathy, site unspecified (principal) | CPT/HCPCS: 62328 ==

== ENCOUNTER 2024-11-04 09:08 | Emergency (ER) | payer MEDICAID, SELFPAY ==
[2024-11-04 09:27] VITALS: BP 130/73; PULSE 89; RESP 16; TEMP 36.4; O2SAT 98; BMI 51.9
--- NOTE | 2024-11-04 12:27 | ED.BACK ---
HPI - Back Pain/Injury General Chief Complaint: Back Pain/Injury Stated Complaint: back pain post lumbar puncture 10/13/24 Time Seen by Provider: 11/04/24 12:27 Source: patient Mode of arrival: ambulatory Limitations: no limitations History of Present Illness ED Provider: Gaby Gaffney NP HPI Narrative: Patient is a 19-year-old female who presents emergency department for evaluation. She is complaining of pain along the midline of her back. She admits that 3 weeks ago she had an LP done outpatient due to Neurology for further evaluation of her seizures. She states about 1 week afterwards she began noticing this pain. On a single day she took a few ibuprofen and did not notice any improvement in her pain so she did not continue to use it. Over the past 2 weeks the pain has been persistent. She is able to move without exacerbating the pain. But directly touching the area makes it painful. She denies any fevers, chills, headache, numbness or tingling of the extremities, bladder bowel dysfunction. Denies any trauma or injury Related Data Home Medications ?Medication ?Instructions ?Recorded ?Confirmed melatonin 5 mg tablet 5 - 10 mg PO BEDTIME PRN Sleep 12/07/22 08/30/24 nystatin 100,000 unit/gram topical 1 appl topical BID PRN Rash 08/30/24 08/30/24 powder Previous Rx's ?Medication ?Instructions ?Recorded levetiracetam 1,000 mg tablet 1,000 mg PO BID #60 tabs 12/07/22 (Keppra) clotrimazole 1 % topical cream 1 appl topical BID 4 weeks #30 11/20/23 grams lxivwxl-beiflkofdscqc-yhksbxna 250 2 tab PO Q6H PRN headache #30 tabs 02/29/24 mg-250 mg-65 mg tablet (Excedrin Migraine) diphenhydramine HCl 25 mg capsule 50 mg (2 x 25 mg) PO Q6H PRN 02/29/24 headache, nausea, vomiting #20 caps metoclopramide HCl 10 mg tablet 10 mg PO Q6H PRN nausea and 02/29/24 (Reglan) vomiting #14 tabs clotrimazole 1 % topical cream 1 appl topical BID 2 weeks #45 11/04/24 grams Allergies Allergy/AdvReac Type Severity Reaction Status Date / Time No Known Allergies Allergy Verified 11/04/24 09:28 [No Known Allergies*] Review of Systems Review of Systems: Yes all other systems are reviewed and are negative [facility] Past Medical History Attestation statement: The following information was validated with the patient. Source: old records reviewed Medical History Migraine Seizure disorder Asthma Surgical History No pertinent past surgical history Social History Social History Household Members: Family Housing: Apartment Do you presently have visiting nurse or other home services: No Alcohol intake: never Patient Tobacco Use Status: Never used Tobacco e-Cigarette/Vaping Use: Never Used Advance Directives: No Advance Directives Information Provided: No Do you have a plan to hurt others: No Plan service: No Current occupational status: disabled Physical Exam Vital Signs: Vital Signs: Last Vital Signs Temp 97.5 F 11/04/24 09:27 Pulse 89 11/04/24 09:27 Resp 16 11/04/24 09:27 BP 130/73 11/04/24 09:27 Pulse Ox 98 11/04/24 09:27 O2 Del Method Room Air 11/04/24 09:27 BMI result Body Mass Index 51.9 Appearance: Alert.?Oriented to person, place and time. No acute distress.?Normal affect. Eyes: Pupils equal, round and reactive to light.? ENT: Pharynx normal.?? Neck: Normal inspection.? Neck supple.? No rigidity. Full range of motion. ? CVS: Heart sounds normal. Normal heart rate and rhythm.? Pulses normal.?? Respiratory: No respiratory distress.? Lung sounds clear to auscultation bilaterally?? Back: There is no midline thoracic or lumbar bony tenderness step-off insert deformities. There is no area of erythema or warmth surrounding the lumbar spine. There is intertrigo infection along the lower thoracic spine between to skin folds, excoriation of the skin and a dried base Skin: Skin warm and dry.? Normal skin color.? ? Neuro: Moves all extremities spontaneously. Sensation intact bilaterally. No focal neuro deficits. Ambulates with normal steady gait. Medical Decision Making Medical Decision Making MDM Narrative: Patient is a 19-year-old female with past medical history of migraines, asthma, seizure disorder who presents emergency department for evaluation of 2 weeks with thoracic back pain as per HPI and pertinent PE portion of this note. Local ligation of the pain is not consistent where LP would have been performed, it is not along the lumbar region but rather the lower thoracic region where she has obvious intertrigo, no midline osseous tenderness no trauma or injury to suggest fracture subluxation or disc herniation. There is a deep crevice to this area due to the folds of skin overlying her middle back. Discussed with patient she will require assistance from her mother at home to be able to cleaned the area adequately twice daily and thoroughly dry before application of the clotrimazole cream. Advised monitoring for signs of improvement and outpatient follow-up with primary care doctor. There is no profound cellulitis surrounding to suggest a need for oral antibiotics. Differential Diagnosis Differential Diagnoses: The differential diagnosis associated with the presentation includes (See narrative above) External Record Review External record reviewed: Outpatient record Prescription Management I considered prescription management with: Other (See narrative above) Chronic Conditions Patient?s care impacted by: Other (See narrative above) Discharge Plan Discharge Clinical Impression: Intertrigo Patient Disposition: Home, Self-Care Additional Instructions: As discussed, there is excoriation/irritation to the skin overlying the middle of your back between 2 folds of skin. Treatment of this is to cleanse it twice daily with warm water and non scented soap, making sure that you completely dry the area afterwards. I have sent a prescription for a topical cream to the pharmacy to help this area to heal. It should be applied twice a day after the area is cleaned and dried, given the location you will likely require help from a family member in order to effectively apply it into the crevice. Please contact your primary care provider to arrange for a follow-up appointment Prescriptions: New clotrimazole 1 % cream 1 appl topical BID 14 Days Qty: 45 0RF No Action melatonin 5 mg Tablet 5 - 10 mg PO BEDTIME PRN (Reason: Sleep) levetiracetam [Keppra] 1,000 mg Tablet 1,000 mg PO BID Qty: 60 2RF diphenhydramine HCl 25 mg capsule 50 mg PO Q6H PRN (Reason: headache, nausea, vomiting) Qty: 20 0RF Excedrin Migraine 250-250-65 mg tablet 2 tab PO Q6H PRN (Reason: headache) Qty: 30 0RF metoclopramide HCl [Reglan] 10 mg tablet 10 mg PO Q6H PRN (Reason: nausea and vomiting) Qty: 14 0RF nystatin 100,000 unit/gram powder 1 appl topical BID PRN (Reason: Rash) clotrimazole 1 % cream 1 appl topical BID 28 Days Qty: 30 0RF Referrals: Physician,None [Primary Care Provider] - Print Language: Russian
--- OUTSIDE RECORDS SUMMARY | 2024-11-04 12:30 | XMS_ITS | Encounter Summary ---
Author Organization [employer] Address [address] [facility] [address], [place] [address] Care Team Providers Care Electric Wirer Name Role Phone Amberly Oliver NP Primary Care Provider [phone] Reason for Visit * Reason Onset Date Comments Reschedule 01/12/2024 Encounter Details Date Type Department Care Team ([facility] st Contact Info) Description 01/12/2024 Telephone [facility] [address] [place] [address] Amberly Oliver NP [address] [place] [address] Reschedule Social History Tobacco Use Types Packs/Day Years Used Date Smoking Tobacco: Never Smokeless Tobacco: Never Alcohol Use Standard Drinks/Week Comments Not Currently 0 (1 standard drink = 0.6 oz pur e alcohol) Depression Answer Date Recorded Patient Health Questionnaire-9 Score 12 03/04/2023 Housing Stability Answer Date Recorded What is your housing situation today? I have bel tan 06/30/[address] you li ve. Do you have problems with any of the following? None of the above 06/30/2023 Food Insecurity Answer Date Recorded Within the past 12 months, y ou worried that your food would run out before you got money to buy more: Never True 12/01/2023 Within the past 12 months,th e food you bought just didn't last and you didn't have enough money to get more: Never True Transportation Answer Date Recorded In the past 12 months, has l ack of transportation kept you from medical appts, meetings, work or from getting things needed for daily living? No 06/30/2023 Utilities Answer Date Recorded In the past 12 months, has t he electric, gas, oil or water company threatened to shut off services in your home? No 06/30/2023 Depression Answer Date Recorded Patient Health Questionnaire-2 Score 3 03/04/2023 Comments Unknown Sex and Gender Information Value Date Recorded Sex Assigned at Female 07/13/2022 10:18 AM EDT Legal Sex Female 10:18 AM EDT Gender Identity Female 07/13/2022 10:18 AM EDT Sexual Orientation Straight 07/13/2022 10 :18 AM EDT documented as of this encounter Miscellaneous Notes * Telephone Encounter - Erika Bauer - 01/12/2024 10:36 AM EDT Tc from pt requesting r/s PE/TP appt documented in this encounter Plan of Treatment Upcoming Encounters Date Type Department Care Team (Late st Contact Info) Description 11/17/2024 3:00 PM EST Office Visit [facility] [address] [place] [address] Rica mC MD [address] [place] [address] documented as of this encounter Visit Diagnoses Not on filedocumented in this encounter Additional Health Concerns Assessment Noted Time PHQ-9 Depression Total Score: 12 023 9:36 AM EDT documented as of this encounter Care Teams Electric Wirer Relationship Specialty Start Date End Date Amberly Oliver NP [address] [place] [id number] PCP - General Family Medicine 06/18/23 Carol Ayoub Tufting Machine Operator Single NeedleBread Pan Greaser 12/17/23 documented as of this encounter
--- OUTSIDE RECORDS SUMMARY | 2024-11-04 12:30 | XMS_ITS | Encounter Summary ---
Author Organization [employer] Address [address] [facility] [address], [place] [address] Care Team Providers Care Security Intelligence Analyst Name Role Phone Amberly Oliver NP Primary Care Provider [phone] Reason for Visit * Reason Onset Date Comments Appointment Request 09/20/2023 Encounter Details Date Type Department Care Team ([facility] Contact Info) Description 09/20/2023 Telephone [facility] [address] [place] [address] Amberly Oliver NP [address] [place] [address] Appointment Request Social History Tobacco Use Types Packs/Day Years [...] before you got money to buy more: Sometimes True 2022 Within the past 12 months,th e food you bought just didn't last and you didn't have enough money to get more: Sometimes True 06/30/2023 Transportation Answer Date Recorded In the past [...] encounter Miscellaneous Notes * Telephone Encounter - Dave Mega - 09/20/2023 12:40 PM EST Tc from pt Carol DNAG stating pt is requesting an appt regarding medication levETIRAcetam (Keppra)250 MG tablet. Please contact pt at [phone]. If any questions please contact Carol at [phone]. documented in this encounter Plan of Treatment Upcoming Encounters Date Type Department Care Team (Late st Contact Info) Description 11/17/2024 3:00 PM EST Office Visit [facility] [address] [place] [id number] Rica Cm MD [address] [place] [address] documented as of this encounter Visit Diagnoses Not on filedocumented in this encounter Additional Health Concerns Assessment Noted Time PHQ-9 Depression Total Score: 12 023 9:36 AM EDT documented as of this encounter Care Teams Security Intelligence Analyst Relationship Specialty Start Date End Date Amberly Oliver NP [address] [place] [address] PCP - General Family Medicine 06/18/23 Carol Ayoub Emergency Services ProfessionalGambling Supervisor 12/17/23 documented as of this encounter
[2024-11-04 13:43] VITALS: BP 130/73; PULSE 89; RESP 16; TEMP 36.4; O2SAT 98
== END 2024-11-04 13:44 | disposition home or self-care (01) ==
PROVIDERS: Emergency Provider Emergency Medicine
DX: L30.4 Erythema intertrigo (principal)
CPT/HCPCS: 99282; 99283

== ENCOUNTER 2025-05-28 10:16 | Outpatient (REF) | payer MEDICAID, SELFPAY ==
--- OUTSIDE RECORDS SUMMARY | 2025-05-28 10:30 | XMS_ITS | Encounter Summary ---
Author Organization [employer] Address [address] [facility] 7[address] [place] [address] Care Team Providers Care Oil Heater Installer Name Role Phone Amberly Oliver SHELLI Primary Care Provider [phone] Reason for Visit * Reason Comments pap Encounter Details Date Type Department Care Team (Latest Contact Info) Description 05/28/2025 10:30 AM EDT Procedure Visit [facility] [address] [place] [address] Tala Arango CNM [address] [place] [address] Cervical cancer screening (Primary Dx); Screening examination for venereal disease Social History Tobacco Use Types Packs/Day Years Used Date Smoking Tobacco: Never Smokeless Tobacco: Never Tobacco Cessation:Counseling Given: Not Answered Alcohol Use Standard Drinks/Week Comments Not Currently 0 (1 standard drink = 0.6 oz pur e alcohol) Alcohol Answer Date Recorded How often do you have a drink containing alcohol ? 0 03/30/2025 How many drinks containing a lcohol do you have on a typical day when you are drinking? 0 03/30/2025 How often do you have six or more drinks on one occasion? 0 03/30/2025 Depression Answer Date Recorded Patient Health Questionnaire-9 Score 8 03/30/2025 Patient Health Questionnaire-9 Score 8 03/30/2025 Last PHQ-9: Questionnaire Data Not on file 0 03/30/2025 Housing Stability Answer Date Recorded What is your housing situation today? I have bel tan 03/23/[address] you li ve. Do you have problems with any of the following? None of the above 03/23/2025 Food Insecurity Answer Date Recorded Within the past 12 months, y ou worried that your food would run out before you got money to buy more: Never True 03/23/2025 Within the past 12 months,th e food you bought just didn't last and you didn't have enough money to get more: Never True 07/2025 Transportation Answer Date Recorded In the past 12 months, has l ack of transportation kept you from medical appts, meetings, work or from getting things needed for daily living? No 03/23/2025 Utilities Answer Date Recorded In the past 12 months, has t he electric, gas, oil or water company threatened to shut off services in your home? No 03/23/2025 Depression Answer Date Recorded Patient Health Questionnaire-2 Score 3 03/30/2025 Internet Access Answer Date Recorded Internet Access Q1 Yes 03/23/2025 Internet Access Q2 Not on file 03/23/2025 Comments Unknown Intention Date Recorded No desire to become (finding) 0 05/28/2025 Sex and Gender Information Value Date Recorded Sex Assigned at Female 07/13/2022 10:18 AM EDT Legal Sex Female 10:18 AM EDT Gender Identity Female 07/13/2022 10:18 AM EDT Sexual Orientation Straight 07/13/2022 10 :18 AM EDT documented as of this encounter Last Filed Vital Signs Vital Sign Reading Time Taken Comments Blood Pressure 150/70 05/28/2025 9:54 AM EDT Pulse 100 05/28/2025 9:54 AM EDT Temperature 36.2 C (97.1 F) 05/28/2025 9:54 AM EDT Respiratory Rate 16 05/28/2025 9:54 AM EDT Oxygen Saturation 97% 05/28/2025 9:54 AM EDT Inhaled Oxygen Concentration - - Weight 119 kg (262 lb 9.6 oz) 05/28/2025 9:54 AM EDT Height - - Body Mass Index 54.88 03/30/2025 9:55 AM EDT documented in this encounter Progress Notes * Tala Arango CNM - 05/28/2025 10:30 AM EDT Subjective Patient ID: Molly Greenberg is a 20 y.o. female who presents for pap Here for initial pap. 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 Denies STI history. PCP labs ordered 03/2025, need to be collected. Seizure disorder, on Keppra. Pituitary adenoma, lastprolactin on file was 30.9 in 2022. Followed by [facility] for this. Denies headache or nipple discharge. Monthly menses x 4-5 days. Cramping responds to Pamprin. No heavy bleeding. Gonorrhea/Chlamydia/trichomonas neg 2022. History of yeast and bacterial vaginosis. Denies vaginal symptoms today. No current partner, last AMAB partner 3 weeks ago. Would like full STI testing. Oral, vaginal, analsex. Review of Systems Genitourinary: Negative for dyspareunia, dysuria, frequency, genital sores, hematuria, menstrual problem, pelvic pain, urgency, vaginal bleeding, vaginal discharge and vaginal pain. No abnormal pap, no abnormal bleeding, no breast pain, no breast mass, no nipple discharge Objective BP (!) 150/70 (BP Location: Left arm, Patient Position: Sitting, BP Cuff Size: Adult) Pulse 100 Temp 97.1 ??F (36.2 ??C) (Oral) Resp 16 Wt 262 lb 9.6 oz (119 kg) LMP 05/16/2025 SpO2 97% BMI 54.88 kg/m?? Physical Exam Constitutional: Appearance: Normal appearance. Neurological: Mental Status: She is alert. Psychiatric: Mood and Affect: Mood normal. Behavior: Behavior normal. Assessment/Plan Diagnoses and all orders for this visit: Cervical cancer screening - Pap Smear Initial pap today. Reviewed indications for screening and usual followup. Will contact with results. Repeat 3y if normal. Reviewed that minor cellular changes are common, and if these are noted, we will repeat pap in 1y. S/p HPV vaccine series. Screening examination for venereal disease - STI testing add on (NG, CT, Trich) - Hepatitis B surface antigen, EIA; Future - Hepatitis B Core Antibody, Total; Future - Hepatitis B Surface Antibody, Qualitative; Future - Hepatitis C Antibody with Reflex to HCV, RNA, Quantitative, Real-Time PCR; Future - Syphilis Screen; Future - HIV-1/2 Antigen and Antibodies, Fourth Generation, with Reflexes; Future - Chlamydia/N. Gonorrhoeae RNA, TMA, Throat - Chlamydia/N. Gonorrhoeae RNA, TMA, Rectal Oral, anal and pap based STI testing collected, serum STI labs ordered. Will contact with results. Advised testing with new partners. Happy with condoms, aware we have on site, declines today. Declines EC. May return any time if interested in control or thinking about getting . Advised STI testing with new partners. Report missed menses or galactorrhea. documented in this encounter Plan of Treatment Upcoming Encounters Date Type Department Care Team (Late st Contact Info) Description 07/16/2025 10:15 AM EST Office Visit [facility] [address], [place] [phone] Amberly Oliver NP [address] [place], [place] [phone] Scheduled Orders Name Type Priority Associated Diagnoses Order Schedule Pap Smear Pathology and Cytology Routine Cervical cancer screening Ordered: 05/28/2025 STI testing add on (NG, CT, Trich) Pathology and Cytology Routine Screening examination for venereal disease Ordered: 05/28/2025 Hepatitis B surface antigen, EIA Lab Routine Screening examination for venereal disease Expected: 05/28/2025 (Approximate), Expires: 05/28/2026 Hepatitis B Core Antibody, Total Lab Routine Screening examination for venereal disease Expected: 05/28/2025 (Approximate), Expires: 05/28/2026 Hepatitis B Surface Antibody, Qualitative Lab Routine Screening examination for venereal disease Expected: 05/28/2025 (Approximate), Expires: 05/28/2026 Hepatitis C Antibody with Reflex to HCV, RNA, Quantitative, Real-Time PCR Lab Routine Screening examination for venereal disease Expected: 05/28/2025 (Approximate), Expires: 05/28/2026 HIV-1/2 Antigen and Antibodies, Fourth Generation, with Reflexes Lab Routine Screening examination for venereal disease Expected: 05/28/2025 (Approximate), Expires: 05/28/2026 Chlamydia/N. Gonorrhoeae RNA, TMA, Throat Microbiology Routine Screening examination for venereal disease Ordered: 05/28/2025 Chlamydia/N. Gonorrhoeae RNA, TMA, Rectal Microbiology Routine Screening examination for venereal disease Ordered: 05/28/2025 documented as of this encounter Procedures Procedure Name Priority Date/Time Associated Diagnosis Comments SYPHILIS SCREEN Routine 05/28/2025 10:23 AM EDT Screening examination for venereal disease documented in this encounter Results * Syphilis Screen (05/28/2025 10:23 AM EDT) Syphilis Screen Nonreactive Nonreactive [facility] Blood Venous blood specimen / Unknown 05/28/2025 10:23 AM EDT 05/28/2025 11:12 AM EDT us Tala Arango [facility] BLOOD ORDERABLES Jie l Result [facility] [address] [place] [phone] documented in this encounter Visit Diagnoses Diagnosis Cervical cancer screening- Primary Screening for malignant neoplasm of the cervix Screening examination for venereal disease documented in this encounter Additional Health Concerns Assessment Noted Time PHQ-9 Depression Total Score: 8 03/30/20 25 9:58 AM EDT documented as of this encounter Care Teams Oil Heater Installer Relationship Specialty Start Date End Date Amberly Oliver NP [address] [place] [phone] PCP - General Family Medicine 06/18/23 Carol Ayoub Active Directory Systems AdministratorBottom Crane Operator 12/17/23 documented as of this encounter
[2025-05-28 11:43] LABS: Hemoglobin A1C 111.0936 umol/L; Total Hemoglobin (HGBA1C) 3396.2884 umol/L
[2025-05-28 12:00] LABS: Syphilis Screen Nonreactive (Nonreactive)
[2025-05-28 12:13] LABS: Alanine Aminotransferase 44 U/L (0-31); Albumin Level 4.5 g/dL (3.5-5.0); Alkaline Phosphatase 64 U/L (39-117); Anion Gap 17 (12-20); Aspartate Amino Transferase 39 U/L (5-31); Blood Urea Nitrogen 12 mg/dL (9-16); Calcium 9.5 mg/dL (8.4-10.2); Carbon Dioxide 17 mmol/L (22-29); Chloride 112 mmol/L (96-108); Cholesterol 177 mg/dL (<200); Estimated Glomerular Filt Rate > 60; HDL Cholesterol 49 mg/dL (>40); Potassium 3.7 mmol/L (3.3-5.1); Sodium 142 mmol/L (135-145); Total Protein 7.2 g/dL (6.5-8.0); Triglycerides 134 mg/dL (<150)
[2025-05-28 12:28] LABS: HBS Num1 0.06 mIU/mL (0-7.99); HBc Num1 0.10 S/CO (0.00-0.79); HBsAGNum1 0.44 S/CO (0.00-0.99); HIV Num 1 0.05 S/CO (0.00-0.99); Hepatitis B Surface Antigen Negative (Negative); ~HepC Num1 0.07 S/CO (0.00-0.79); ~Hepatitis B Surface Antibody NONREACTIVE (Nonreactive); ~Hepatitis C Antibody Nonreactive (Nonreactive)
[2025-05-28 12:49] LABS: Free T4 (Free Thyroxine) 0.90 ng/dL (0.71-1.85)
--- OUTSIDE RECORDS SUMMARY | 2025-05-28 13:01 | XMS_ITS | Encounter Summary ---
Author Organization [employer] Address [address] [facility] 7t [place] [address] Care Team Providers Care Sock Lining Examiner Name Role Phone Amberly Oliver SHELLI Primary Care Provider [phone] Encounter Details Date Type Department Care Team (Latest Contact Info) Description 05/28/2025 Results Follow-Up [facility] [address] [place] [address] Tala Arango CNM [address] [place] [address] Lipid Panel, Standard, Hemoglobin A1c, TSH W/Reflex to FT4, Comprehensive Metabolic Panel Social History Tobacco Use Types Packs/Day Years [...] Q2 Not on file 03/23/2025 Comments Unknown Sex and Gender Information Value Date Recorded Sex Assigned at Female 07/13/2022 10:18 AM EDT Legal Sex Female 10:18 AM EDT Gender Identity Female 07/13/2022 10:18 AM EDT Sexual Orientation Straight 07/13/2022 10 :18 AM EDT documented as of this encounter Miscellaneous Notes * Result Encounter Note - Tala Arango CNM - 05/28/2025 12:37 PM EDT FYI - labs you ordered documented in this encounter Plan of Treatment Upcoming Encounters Date Type Department Care Team (Late st Contact Info) Description 07/16/2025 10:15 AM EST Office Visit [facility] [address] [place] [address] Amberly Oliver NP [address] [place] [address] documented as of this encounter Visit Diagnoses Not on filedocumented in this encounter Additional Health Concerns Assessment Noted Time PHQ-9 Depression Total Score: 8 03/30/20 25 9:58 AM EDT documented as of this encounter Care Teams Sock Lining Examiner Relationship Specialty Start Date End Date Amberly Oliver NP [address] [place] [address] PCP - General Family Medicine 06/18/23 Carol Ayoub Scrubber System AttendantTown Marshal 12/17/23 documented as of this encounter
--- OUTSIDE RECORDS SUMMARY | 2025-05-28 13:01 | XMS_ITS | Encounter Summary ---
Author Organization [id number] Address [address] [facility] 7t [place] [address] Care Team Providers Care Class A Regional Truck Driver Name Role Phone Amberly Oliver NP Primary Care Provider [phone] Encounter Details Date Type Department Care Team (Late st Contact Info) Description 05/28/2025 Orders Only [facility] [address] [place] [address] Amberly Oliver NP [address] [place] [address] Social History Tobacco Use Types Packs/Day Years [...] AM EDT documented as of this encounter Plan of Treatment Upcoming Encounters Date Type Department Care Team (Late st Contact Info) Description 07/16/2025 10:15 AM EST Office Visit [facility] [address] [place] [address] Amberly Oliver NP [address] [place] [address] documented as of this encounter Procedures Procedure Name Priority Date/Time Associated Diagnosis Comments T4, FREE Routine 05/28/2025 10:23 AM EDT documented in this encounter Results * T4, Free (05/28/2025 10:23 AM EDT) Free T4 (Free Thyroxine) 0.90 0.71 - 1.85 ng/dL [facility] 05/28/2025 10:2 3 AM EDT 05/28/2025 11:12 AM EDT us Amberly Oliver NP LAB BLOOD ORDERABLES Final Resu lt [facility] [address] [place] [address] [phone] documented in this encounter Visit Diagnoses Not on filedocumented in this encounter Additional Health Concerns Assessment Noted Time PHQ-9 Depression Total Score: 8 03/30/20 25 9:58 AM EDT documented as of this encounter Care Teams Class A Regional Truck Driver Relationship Specialty Start Date End Date Amberly Oliver NP [address] [place] [address] PCP - General Family Medicine 06/18/23 Carol Ayoub Dimethylaniline Sulfator OperatorDesk Officer 12/17/23 documented as of this encounter
--- OUTSIDE RECORDS SUMMARY | 2025-05-28 13:01 | XMS_ITS | Encounter Summary ---
Author Organization [employer] Address [address] [facility] 7t [place] [address] Care Team Providers Care Family Law Specialist Name Role Phone Amberly Oliver NP Primary Care Provider [phone] Reason for Visit * Reason Onset Date Comments Appointment Request 09/20/2023 Encounter Details Date Type Department Care Team ([facility] st Contact Info) Description 09/20/2023 Telephone [facility] [address] [place], [place] [phone] Amberly Oliver NP [address] [place] [address] Appointment Request Social History Tobacco Use Types [...] Miscellaneous Notes * Telephone Encounter - Dave Ayoub - 09/20/2023 12:40 PM EST Tc from pt Carol DANG stating pt is requesting an appt regarding medication levETIRAcetam (Keppra)250 MG tablet. Please contact pt at [phone]. If any questions please contact Carol at [phone]. documented in this encounter Plan of Treatment Upcoming Encounters Date Type Department Care Team (Late st Contact Info) Description 07/16/2025 10:15 AM EST Office Visit [facility] [address] [place] [address] Amberly Oliver NP [address] [place] [address] documented as of this encounter Visit Diagnoses Not on filedocumented in this encounter Additional Health Concerns Assessment Noted Time PHQ-9 Depression Total Score: 12 023 9:36 AM EDT documented as of this encounter Care Teams Family Law Specialist Relationship Specialty Start Date End Date Amberly Oliver NP [address] [place] [address] PCP - General Family Medicine 06/18/23 Carol Ayoub Project Manager/Design ManagerScreen Tender Helper 12/17/23 documented as of this encounter
--- OUTSIDE RECORDS SUMMARY | 2025-05-28 13:01 | XMS_ITS | Encounter Summary ---
Author Organization [employer] Address [address] [facility] 7t [place] [address] Care Team Providers Care Junior Programmer Name Role Phone Amberly Oliver NP Primary Care Provider [phone] Reason for Visit * Reason Onset Date Comments Reschedule 01/12/2024 Encounter Details Date Type Department Care Team ([facility] st Contact Info) Description 01/12/2024 Telephone [facility] [address] [place] [address] Amberly Oliver NP [address] [place] [address] Reschedule Social History Tobacco Use Types Packs/Day [...] t he electric, gas, oil or water [employer] threatened to shut off services in your [...] Description 07/16/2025 10:15 AM EST Office Visit [facility] [address] [place] [address] Amberly Oliver NP [address] [place] [address] documented as of this encounter Visit Diagnoses Not on filedocumented in this encounter Additional Health Concerns Assessment Noted Time PHQ-9 Depression Total Score: 12 023 9:36 AM EDT documented as of this encounter Care Teams Junior Programmer Relationship Specialty Start Date End Date Amberly Oliver NP [address] [place] [address] PCP - General Family Medicine 06/18/23 Carol Ayoub Centerless Grinder TenderFloor Coverer 12/17/23 documented as of this encounter
--- OUTSIDE RECORDS SUMMARY | 2025-05-28 13:01 | XMS_ITS | Encounter Summary ---
Author Organization [employer] Address [address] [facility] [address] [place] [address] Care Team Providers Care Aviation Neuropsychologist Name Role Phone Amberly Oliver SHELLI Primary Care Provider [phone] Reason for Visit * Reason Onset Date Comments CHART PREP 05/25/2025 Encounter Details Date Type Department Care Team ([facility] st Contact Info) Description 05/25/2025 Telephone [facility] [address] [place] [address] Tala Arango CNM [address] [place] [address] CHART PREP Social History Tobacco Use Types Packs/Day Years [...] encounter Miscellaneous Notes * Telephone Encounter - Dimitris Galeano MA - 05/25/2025 12:04 PM EDT Chart Prep Labs: not done from 03/30/25 Images: not applicable Referrals: not applicable Vaccines due: Covid, Flu, and Tdap Screenings: LMP Overdue care gaps: [id number] documented in this encounter Plan of Treatment Upcoming Encounters Date Type Department Care Team (Late st Contact Info) Description 07/16/2025 10:15 AM EST Office Visit [facility] [address] [place] [address] Amberly Oliver NP [address] [place] [address] documented as of this encounter Visit Diagnoses Not on filedocumented in this encounter Additional Health Concerns Assessment Noted Time PHQ-9 Depression Total Score: 8 03/30/20 25 9:58 AM EDT documented as of this encounter Care Teams Aviation Neuropsychologist Relationship Specialty Start Date End Date Amberly Oliver NP [address] [place] [address] PCP - General Family Medicine 06/18/23 Carol Ayoub Outbound TelemarketerIs Support Analyst 12/17/23 documented as of this encounter
--- OUTSIDE RECORDS SUMMARY | 2025-05-28 13:01 | XMS_ITS | Encounter Summary ---
Author Organization [employer] Address [address] [facility] 7t [place] [address] Care Team Providers Care Professor Of Musicology Name Role Phone Amberly Oliver AVIONICS SUPERVISOR Primary Care Provider Encounter Details Date Type Department Care Team (Latest Contact Info) Description 05/28/2025 Travel Social History Tobacco Use Types Packs/Day Years [...] 10:15 AM EST Office Visit [facility] [address] [place] [address] Amberly Oliver NP [address] [place] [address] documented as of this encounter Visit Diagnoses Not on filedocumented in this encounter Additional Health Concerns Assessment Noted Time PHQ-9 Depression Total Score: 8 03/30/20 25 9:58 AM EDT documented as of this encounter Care Teams Professor Of Musicology Relationship Specialty Start Date End Date Amberly Oliver NP [address] [place] [address] PCP - General Family Medicine 06/18/23 Carol Ayoub Police WorkerMuck Miner 12/17/23 documented as of this encounter
--- OUTSIDE RECORDS SUMMARY | 2025-05-28 13:01 | XMS_ITS | Clinical Summary ---
Author Organization [employer] Address [address] [facility] 7t [place] [address] Care Team Providers Care Compliance Lead Name Role Phone Amberly Oliver SHELLI Primary Care Provider [phone] Allergies No known active allergies Medications ibuprofen 200 MG tablet 1 - 2 tablet by oral route every 6 to 8 hours prn fever or pain 04/03/20 19 Active levETIRAcetam (Keppra) 250 MG tablet 1 tab po BID Active albuterol 108 (90 Base) MCG/ACT inhalerIndicatio ns:Mild intermittent asthma without complication Inhale 2 puffs every 6 (six) hours if needed for wheezing. 18 g 11 03/15/20 24 Active Blood Pressure kitIndications:E levated BP without diagnosis of hypertension 1 Units Once per day. 1 kit 03/15/20 24 Active traZODone (Desyrel) 50 MG tabletIndication s:Insomnia, unspecified type Take 0.5-1 tablets (25-50 mg) by mouth if needed at bedtime for sleep. 90 tablet 1 04/12/20 24 Active clindamycin (Cleocin T) 1 % lotionIndication s:Hidradenitis suppurativa APPLY TOPICALLY TWICE A DAY 60 mL 1 05/19/20 24 Active metFORMIN, OSM, (Fortamet) 500 MG 24 hr tabletIndication s:Hidradenitis suppurativa Take 1 tablet (500 mg) by mouth with evening meal. Do not crush, chew, or split. 30 tablet 11 09/08/20 24 025 Active minocycline 100 MG capsuleIndicatio ns:Hidradenitis suppurativa TAKE 1 CAPSULE (100 MG) BY MOUTH ONCE PER DAY. 30 capsule 2 03/02/20 25 Active cholecalciferol (Vitamin D-3) 20 MCG (800 UNIT) tabletIndication s:Hypovitaminosi s D Take 1 tablet (20 mcg) by mouth Once per day. 90 tablet 1 03/30/20 25 026 Active melatonin 5 MG tabletIndication s:Insomnia, unspecified type TAKE 1 TABLET BY MOUTH AT BEDTIME NEEDED SLEEP 30 tablet 5 05/09/20 25 Active melatonin 5 MG tabletIndication s:Insomnia, unspecified type Take 1 tablet (5 mg) by mouth if needed at bedtime (insomnia). 90 tablet 1 10/04/19 25 025 Discontinued Active Problems Problem Noted Date Diagnosed Date Encounter for annual physical exam 06/14/2024 Assessment & Plan (06/14/2024 1:22 PM EDT): -age appropriate screening and immunizations up to date -declines STI testing -mild cardiovascular risk given obesity -mental health screening negative -healthy social behaviors encouraged -anticipatory guidance reviewed: diet, exercise -follow-up 1 year or sooner as needed Insomnia 03/04/2023 Overview (03/04/2023): Treating with melatonin 5mg 1-2 tabs at night PRN and Trazodone 50 mg 0.5-1tab at night PRN Assessment & Plan (04/02/2025 8:36 AM EDT): -sleep hygiene reviewed -continue trazadone Assessment & Plan (03/04/2023 10:47 PM EDT): Refill melatonin and trazodone Followup 3 months or sooner PRN Moderate major depression 03/04/2023 Overview (03/04/2023): PHQ9 score 13 today Has therapy weekly Treats with Trazodone 50 mg Treated with prozac in the past Assessment & Plan (03/04/2023 10:50 PM EDT): Refill trazodone Rx Prozac 10 mg, educated SE Continue therapy Followup 3 months or sooner PRN Hidradenitis suppurativa 03/04/2023 Overview (03/04/2023): Hx and exam c/w HS Stable Assessment & Plan (04/02/2025 8:35 AM EDT): -stable on minocycline 100 mg qd -followed by Dr. Cm and started on metformin Assessment & Plan (06/14/2024 1:20 PM EDT): -stable per patient -refill provided per patient request Assessment & Plan (03/04/2023 10:52 PM EDT): Discussed etiology of condition Rx Clindamycin lotion Followup 3 months or sooner PRN Mild intermittent asthma without complication Overview (03/04/2023): Hx of asthma: Asthma has been acting again for the last week. Assessment & Plan (06/14/2024 1:24 PM EDT): -stable without acute flares -rescue inhaler refill provided for as needed use Assessment & Plan (03/04/2023 10:51 PM EDT): Rx albuterol pump Has spacer = use pump w/ spacer Followup PRN Pituitary microadenoma 08/15/2022 Overview (07/29/2023): Images from the original note were not included. MRI 03/2023 Seizure 08/15/2022 Overview (03/04/2023): Last seizure activity: 12/06/22: [facility] [place] generalized seizures; Tonic clonic seizures witnessed in the ED received loading dose of Keppra reports history of seizures and confessed that she has not taken her medication in several months restarted Keppra 1000 BID seen by neurology, EEG Abnormal EEG suggestive of bihemispheric dysfunction. Patient to schedule PCP apt for further medication management no driving for 6 months and after follow up clearance from PCP/neurology Care managed by Neurology, last appt 02/2023 Keppra 250mg Twice a day Assessment & Plan (04/02/2025 8:30 AM EDT): -stable on keppra -follows with Dr. Parikh Assessment & Plan (03/04/2023 10:46 PM EDT): Continue Keppra Followup 2 months or sooner PRN Vitamin D deficiency 08/15/2022 Assessment & Plan (03/04/2023 10:50 PM EDT): Will order Vit D lab Notify of results If low will rx supplement Followup 3 months or sooner PRN Obesity 05/14/2015 Assessment & Plan (04/02/2025 8:36 AM EDT): -patient would like to start with lifestyle modifications. Patient on metformin from derm provider -Dietary Recommendations: Fruits, vegetables, whole grains, protein foods, and fat-free or low-fat dairy products are healthy choices. Eat different types of protein foods in your diet. This can include seafood, lean meats, poultry, beans, peas, lentils, nuts, seeds, soy products, and eggs. Limit foods and beverages higher in added sugars, saturated fat, and sodium. Exercise Recommendations: At least 150 minutes of moderate-intensity physical activity per week, or an equivalent combination of moderate- and vigorous-intensity activity -referred to nutrition -discussed options for pharmacological measures to consider as well -metabolic labs ordered Assessment & Plan (06/14/2024 1:24 PM EDT): -Healthy diet and exercise teaching completed: Eat a variety of fruit and vegetables, whole grains such as whole-wheat flour, bulgur (cracked wheat), oatmeal, and brown rice. Intake protein from beans, nuts, fish, and lean meats. Eat low-fat or fat- free dairy products. Limit highly processed foods such as hot dogs, sandwich meat, etc. Engage in minimum of 150 min of moderate intensity exercise weekly -labs ordered to assess for endocrine contribution and resulting metabolic effects Resolved Problems Problem Noted Date Diagnosed Date Resolved Date Difficulty sleeping 08/15/2022 03/04/20 23 Depressive disorder 05/22/2016 03/04/20 23 Encounters Date Type Department Care Team Description 05/28/2025 10:30 AM EDT Procedure Visit [facility] [place] [id number] Tala Arango CNM Cervical cancer screening (Primary Dx); Screening examination for venereal disease 05/28/2025 Orders Only [facility] [place] [address] Amberly Oliver NP 05/28/2025 Results Follow-Up [facility] MOOSE Sidhu [phone] Tala Arango CNM Lipid Panel, Standard, Hemoglobin A1c, TSH W/Reflex to FT4, Comprehensive Metabolic Panel 05/28/2025 Travel 05/25/2025 Telephone [facility] [place] [address] Tala Arango CNM CHART PREP 05/09/[address] Amberly Oliver NP june05/09/2025 Refill [facility] [place] [address] Amberly Oliver NP Insomnia, unspecified type 04/17/2025 Telephone [facility] [place] [address] Tala Arango CNM chart prep 03/30/2025 10:30 AM EDT Office Visit [facility] [place] [address] Amberly Oliver NP Annual physical exam (Primary Dx); Dietary counseling; Exercise counseling; Class 3 severe obesity due to excess calories without serious comorbidity with body mass index (BMI) of 50.0 to 59.9 in adult; Hypovitaminosis D; Positive screening for depression on 9-item Patient Health Questionnaire (PHQ-9); Seizure (CMS/HCC); Insomnia, unspecified type; Hidradenitis suppurativa 03/30/2025 Travel 03/29/2025 Telephone [facility] [place] [address] Amberly Oliver NP Chart Prep 03/23/2025 Patient Outreach [facility] [address] [place] [address] Amberly Oliver NP Pre-visit Planning (SDOH negative. Tobacco screening negative. ) 02/28/2025 Refill [facility] [address] [place] [address] Amberly Oliver NP Hidradenitis suppurativa from Last 3 Months Immunizations Immunization Administration Dates Next Due DTaP 04/14/2007, 5,2003,08/14,2003 HPV 9-Valent 05/22/2016,05/14/2015 Hep A, ped/adol, 2 dose 05/22/2016,05/14/2015 Hep B, Adolescent or Pediatric 05/06/2004,2003,2003 Hib (HbOC) 12/08/2004, 4,2003,04/19 IPV 04/14/2007, 4,2003,04/19 Influenza injectable quadriv alent preservative free 07/29/2023,10/19/2017 Influenza, Split (incl. nury fied surface antigen) 06/02/2012 MMR 04/14/2007,05/06/2004 Meningococcal MCV4P ACYW-135 04/20/2019,05/14/20 15 Pneumococcal Conjugate PCV 7 12/08/2004, 2003,2003,04/19 Tdap 05/14/2015 Varicella 04/14/2007,05/06/2004 Family History Medical History Relation Name Comments Diabetes Mother Hyperlipidemia Mother Breast cancer Neg Hx Colon cancer Neg Hx Ovarian cancer Neg Hx Relation Name Status Comments Mother Social History Tobacco Use Types Packs/Day Years [...] Orientation Straight 07/13/2022 10 :18 AM EDT Last Filed Vital Signs Vital Sign Reading Time Taken Comments Blood Pressure 150/70 05/28/2025 9:54 AM EDT Pulse 100 05/28/2025 9:54 AM EDT Temperature 36.2 C (97.1 F) 05/28/2025 9:54 AM EDT Respiratory Rate 16 05/28/2025 9:54 AM EDT Oxygen Saturation 97% 05/28/2025 9:54 AM EDT Inhaled Oxygen Concentration - - Weight 119 kg (262 lb 9.6 oz) 05/28/2025 9:54 AM EDT Height 147.3 cm (4' 10 ) 03/30/2025 9:55 AM EDT Body Mass Index 54.88 03/30/2025 9:55 AM EDT Plan of Treatment Upcoming Encounters Date Type Department Care Team (Late st Contact Info) Description 07/16/2025 10:15 AM EST Office Visit [facility] [address] [place], [place] [phone] Amberly Oliver NP [address] [place] [address] Health Maintenance Due Date Last Done Comments HIV Screening 2003 Meningococcal B Vaccine (1 of 2 - Standard) 2019 Hepatitis C Screening 2021 Pneumococcal Vaccine: Pediatrics (0 to 5 Years) and At-Risk Patients (6 to 49) Years (1 of 2 - PCV) 2022 12/08/2004, 2003, 2003, Additional history exists Chlamydia and Gonorrhea Screening 10/10/2023 10/10/2022 Pap Smear 02/09/2024 COVID-19 Vaccine ( season) 2025 DTaP/Tdap/Td Vaccines (7 - Td or Tdap) 05/14/2025 05/14/2015, 04/14/2007, 12/08/2004, Additional history exists Influenza Vaccine (#1) 2025 , 10/19/2017, 05/25/2013, Additional history exists Alcohol/Substance Use Screening 07/21/2025 07/21/2024 SDOH Screening 03/23/2026 03/23/2025 Depression Screening 03/30/2026 03/30/2025, 03/30/20 25 Disability Screening 03/30/2026 03/30/2025 Family Planning (PISQ) 05/28/2026 05/28/2025 Tobacco Screening 05/28/2026 05/28/2025 Lipid Panel 05/28/2030 05/28/2025, 07/21/2024 Zoster Vaccines (1 of 2) 2053 RSV Patients and Patients Aged 60 years or older (1 - 1-dose 75+ series) 2078 Hepatitis B Vaccines Completed 05/06/2004, 2003, 2003 HIB Vaccines Completed 12/08/2004, 09/13, 2003, Additional history exists IPV Vaccines Completed 04/14/2007, 04/14, 2003, Additional history exists HPV Vaccines Completed 05/22/2016, 05/14/2015 Hepatitis A Vaccines Completed 05/22/2016, 05/14/20 15 Meningococcal Vaccine Completed 04/20/2019, 015 RSV under 20 months Aged Out No longe r eligible based on patient's age to complete this topic Rotavirus Vaccines Aged Out No longer eligible based on patient's age to complete this topic Procedures Procedure Name Priority Date/Time Associated Diagnosis Comments T4, FREE Routine 05/28/2025 10:23 AM EDT SYPHILIS SCREEN Routine 05/28/2025 10:23 AM EDT Screening examination for venereal disease COMPREHENSIVE METABOLIC PANEL Routine 05/28/2025 10:23 AM EDT Class 3 severe obesity due to excess calories without serious comorbidity with body mass index (BMI) of 50.0 to 59.9 in adult TSH W/REFLEX TO FT4 Routine 05/28/2025 1 0:23 AM EDT Class 3 severe obesity due to excess calories without serious comorbidity with body mass index (BMI) of 50.0 to 59.9 in adult HEMOGLOBIN A1C Routine 05/28/2025 10:23 AM EDT Class 3 severe obesity due to excess calories without serious comorbidity with body mass index (BMI) of 50.0 to 59.9 in adult LIPID PANEL, STANDARD Routine 05/28/2025 10:23 AM EDT Class 3 severe obesity due to excess calories without serious comorbidity with body mass index (BMI) of 50.0 to 59.9 in adult CHLAMYDIA/N. GONORRHOEAE RNA, TMA, UROGENITAL Routine 10/10/2022 2:37 PM EST from Last 3 Months or Most Recently Relevant to Health Maintenance Results * Syphilis Screen (05/28/2025 10:23 AM EDT) Syphilis Screen Nonreactive Nonreactive [facility] Blood Venous blood specimen / Unknown 05/28/2025 10:23 AM EDT 05/28/2025 11:12 AM EDT Tala Arango [facility] LAB BLOOD ORDERABLES Jie l Result Performing Organization Address [facility] Co de Phone Number [facility] [address] [place] [phone] * (ABNORMAL) TSH W/Reflex to FT4 (05/28/2025 10:23 AM EDT) TSH reflex Free T4 4.36(H) 0.32 - 4.0 uIU/mL [facility] Blood Venous blood specimen / Unknown 05/28/2025 10:23 AM EDT 05/28/2025 11:12 AM EDT Amberly Oliver STRETCHING MACHINE TENDER FRAME LAB BLOOD ORDERABLES Final Resu lt Performing Organization Address [facility] Co de Phone Number [facility] [address] [place] [phone] * T4, Free (05/28/2025 10:23 AM EDT) Free T4 (Free Thyroxine) 0.90 0.71 - 1.85 ng/dL [facility] 05/28/2025 10:2 3 AM EDT 05/28/2025 11:12 AM EDT Amberly Appram STRETCHING MACHINE TENDER FRAME LAB BLOOD ORDERABLES Final Resu lt Performing Organization Address [facility] Co de Phone Number [facility] [address] [place] [address] [place] [phone] * Hemoglobin A1c (05/28/2025 10:23 AM EDT) Hemoglobin A1c 5.1 <6.0 % [facility] Comment:Hemoglobin A1C Refer ence Range Adults: 4.8 - 6.0 % Non diabetic: < 6.0 % Goal: < 7.0 %Additional Action Suggested: > 8.0 %Note: Hemoglobin A1c results are invalid for patients with abnormal amounts of HbF. Blood transfusions may impact the HbA1c concentration in the patient sample. Estimated Average Glucose 100 mg/dL [facility] Comment:eAG = Estimated ave rage glucose which is %A1C expressed asaverage glucose, using the formula of the N9F-VrrsctjIsaynon Glucose study (ADAG), Diabetes Care, Vol.31,#8,Apr. 2007 Blood Venous blood specimen / Unknown 05/28/2025 10:23 AM EDT 05/28/2025 11:12 AM EDT Amberly Oliver STRETCHING MACHINE TENDER FRAME LAB BLOOD ORDERABLES Final Resu lt [facility] [address] [place] [phone] * (ABNORMAL) Lipid Panel, Standard (05/28/2025 10:23 AM EDT) Triglycerides 134 <150 mg/dL [facility] Comment:Desirable Triglyceri de: less than 150 mg/dLBorderline High Triglyceride 150-199 mg/dLHigh Triglyceride: 200-499 mg/dLVery High Triglyceride: greater than or equal to 5OO mg/dL Cholesterol 177 <200 mg/dL [facility] Comment:Desirable Cholestero l: less than 200 mg/dLBorderline High Cholesterol: 200-239 mg/dLHigh Cholesterol: greater than 239 mg/dL LDL Cholesterol Calculated 102(H) <100 mg/dL [facility] Comment:Desirable LDL: less than 100 mg/dLNear Optimal/Above Optimal LDL: 110- 129 mg/dLBorderline High LDL: 130-159 mg/dLHigh LDL: 160-189 mg/dLVery High LDL: greater than or equal to 190 mg/dL HDL Cholesterol 49 >40 mg/dL [facility] Comment:Desirable HDL: great er than 40 mg/dL Note: This HDL assay may give artificially low results in patients with liver disease. Blood Venous blood specimen / Unknown 05/28/2025 10:23 AM EDT 05/28/2025 11:12 AM EDT us Amberly Oliver STRETCHING MACHINE TENDER FRAME LAB BLOOD ORDERABLES Final Resu lt [facility] [address] [place], [place] [phone] * (ABNORMAL) Comprehensive Metabolic Panel (05/28/2025 10:23 AM EDT) Sodium 142 135 - 145 mmol/L [facility] Potassium 3.7 3.3 - 5.1 mmol/L [facility] Chloride 112(H) 96 - 108 mmol/L [facility] Carbon Dioxide 17(L) 22 - 29 mmol/L [facility] Anion Gap 17 12 - 20 [facility] Urea Nitrogen (BUN) 12 9 - 16 mg/dL [facility] Creatinine, Serum 0.65 0.5 - 1.4 mg/dL [facility] Estimated Glomerular Filt Rate >60 [facility] Comment:Chronic Kidney Disea se: Estimated GFR < 60 mL/min/1.12f3Mitveq Kidney Disease: Estimated GFR < 15 mL/min/1.73m2 Glucose 99 60 - 115 mg/dL [facility] Calcium 9.5 8.4 - 10.2 mg/dL [facility] Bilirubin, Total 0.3 0.0 - 1.0 mg/dL [facility] Aspartate Amino Transferase 39(H) 5 - 31 U/L [facility] Alanine Aminotransferase 44(H) 0 - 31 U/L [facility] Total Protein 7.2 6.5 - 8.0 g/dL [facility] Albumin Level 4.5 3.5 - 5.0 g/dL [facility] Alkaline Phosphatase 64 39 - 117 U/L [facility] Blood Venous blood specimen / Unknown 05/28/2025 10:23 AM EDT 05/28/2025 11:12 AM EDT Amberly Oliver STRETCHING MACHINE TENDER FRAME LAB BLOOD ORDERABLES Final Resu lt [facility] [address] [place] [phone] * Chlamydia/N. Gonorrhoeae RNA, TMA, Urogenitial (10/10/2022 2:37 PM EST) CT PCR NOT DETECTED Not Detect. [facility] Comment:A not detected test result does not exclude the possibilityof infection because test results can be affected byimproper specimen collection, concurrent antibiotic therapy,or the number of organisms in the specimen which may bebelow the sensitivity of the test. As with many diagnostictests, results from the Xpert CT/NG assay should beinterpreted in conjunction with other laboratory andclinical data available to the clinician.Xpert CT/NG performance has not been evaluated in patientsless than 14 years of age. The assay should not be used forthe evaluationof suspected sexual abuse or for other medico-legalindications. Additional testing is recommended in anycircumstance when false positive or false negative resultscould lead to adverse medical, social or psychologicalconsequences. NG PCR NOT DETECTED Not Detect. [facility] Comment:A not detected test result does not exclude the possibilityof infection because test results can be affected byimproper specimen collection, concurrent antibiotic therapy,or the number of organisms in the specimen which may bebelow the sensitivity of the test. As with many diagnostictests, results from the Xpert CT/NG assay should beinterpreted in conjunction with other laboratory andclinical data available to the clinician.Xpert CT/NG performance has not been evaluated in patientsless than 14 years of age. The assay should not be used forthe evaluationof suspected sexual abuse or for other medico-legalindications. Additional testing is recommended in anycircumstance when false positive or false negative resultscould lead to adverse medical, social or psychologicalconsequences. 10/10/2022 2:37 PM EST 10/10/2022 2:50 PM EST Narrative [facility] - 10/10/2022 4:44 PM EST Urine [facility] Exter nal Provider LAB MICROBIOLOGY - GENERAL ORDERABLES Final Result Performing Organization Address City/State/[facility] Co de Phone Number [facility] [address] [place] [address] [phone] from Last 3 Months or Most Recently Relevant to Health Maintenance Insurance [employer] Care Teams Compliance Lead Relationship Specialty Start Date End Date Amberly Oliver NP [address] [place] [phone] PCP - General Family Medicine 06/18/23 Carol Ayoub Manufacturing ExecutiveLoader Semiconductor Dies 12/17/23
[2025-06-01 23:28] LABS: C.Trachomatis RNA TMA, Rectal NOT DETECTED; N.Gonorrhoeae RNA TMA, Rectal NOT DETECTED
[2025-06-02 12:43] LABS: C. Trachomatis RNA TMA, Throat NOT DETECTED; N. gonorrhoeae RNA TMA, Throat NOT DETECTED
== END 2025-05-28 10:17 | disposition home or self-care (01) ==
LOC: HO.HHCL 10:16
PROVIDERS: PCP Nurse Practitioner; Visit Provider Advanced Practice Midwife
DX: E66.813 Obesity, class 3 (principal); Z68.43 Body mass index [BMI] 50.0-59.9, adult; Z12.4 Encounter for screening for malignant neoplasm of cervix; Z11.8 Encounter for screening for other infectious and parasitic diseases; Z11.3 Encounter for screening for infections with a predominantly sexual mode of transmission; Z11.59 Encounter for screening for other viral diseases
CPT/HCPCS: 36415; 80053; 80061; 83036; 84439; 84443; 86704; 86706; 86780; 86803; 87340; 87389; 87491; 87591

== ENCOUNTER 2025-05-28 15:49 | Outpatient (REF) | payer MEDICAID, SELFPAY ==
[2025-05-29 21:14] LABS: C. trachomatis RNA TMA NOT DETECTED (NOT DETECTED); N. gonorrhoeae RNA TMA NOT DETECTED (NOT DETECTED)
[2025-06-07 08:32] LABS: Trichomonas (NAAT) NOT DETECTED
== END 2025-05-28 15:50 | disposition home or self-care (01) ==
LOC: HO.LNP 15:49
PROVIDERS: Visit Provider Advanced Practice Midwife
DX: E66.813 Obesity, class 3 (principal); Z68.43 Body mass index [BMI] 50.0-59.9, adult; Z12.4 Encounter for screening for malignant neoplasm of cervix; Z11.3 Encounter for screening for infections with a predominantly sexual mode of transmission; Z11.4 Encounter for screening for human immunodeficiency virus [HIV]; Z11.59 Encounter for screening for other viral diseases; Z11.8 Encounter for screening for other infectious and parasitic diseases
CPT/HCPCS: 36415; 80053; 80061; 83036; 84439; 84443; 86704; 86706; 86780; 86803; 87340; 87389; 87491; 87591; 87661; 88175

== ENCOUNTER 2025-07-16 10:24 | Outpatient (REF) | payer MEDICAID, SELFPAY ==
--- OUTSIDE RECORDS SUMMARY | 2025-07-16 10:15 | XMS_ITS | Encounter Summary ---
Author Organization [employer] Address [address] [facility] 7[address] [place] [address] Care Team Providers Care Pipelines Superintendent Name Role Phone Amberly Oliver NP Primary Care Provider [phone] Encounter Details Date Type Department Care Team ([facility] st Contact Info) Description 07/16/2025 10:15 AM EST Office Visit [facility] [address] [place] [address] Amberly Oliver NP [address] [place] [address] Elevated TSH (Primary Dx); Class 3 severe obesity due to excess calories without serious comorbidity with body mass index (BMI) of 50.0 to 59.9 in adult (HCC) Social History Tobacco Use Types Packs/Day Years Used Date Smoking Tobacco: Never Passive Smoke Exposure: Never Smokeless Tobacco: Never Tobacco Cessation:Counseling Given: [...] Sign Reading Time Taken Comments Blood Pressure 136/84 07/16/2025 9:41 AM EST Pulse 91 07/16/2025 9:41 AM EST Temperature 36.4 C (97.5 F) 07/16/2025 9:41 AM EST Respiratory Rate 18 07/16/2025 9:41 AM EST Oxygen Saturation 98% 07/16/2025 9:41 AM EST Inhaled Oxygen Concentration - - Weight 117 kg (258 lb 6 oz) 07/16/2025 9:[address] Height 147.3 cm (4' 10 ) 07/16/2025 9:41 AM EST Body Mass Index 54 07/16/2025 9:41 AM EST documented in this encounter Plan of Treatment Upcoming Encounters Date Type Department Care Team (Late st Contact Info) Description 08/07/2025 10:00 AM EST Clinical Support [facility] DIABETES/NUTRITION [address] [facility], [place] [phone] Natalia Conteh RD [address] [place] [address] Scheduled Orders Name Type Priority Associated Diagnoses Orde r Schedule TSH W/Reflex to FT4 Lab Routine Elevated TSH Expected: 07/16/2025 (Approximate), Expires: 07/16/2026 T3, Total Lab Routine Elevated TSH Expected: 07/16/2025 (Approximate), Expires: 07/16/2026 documented as of this encounter Visit Diagnoses Diagnosis Elevated TSH- Primary Other abnormal blood chemistry Class 3 severe obesity due to excess calories without serious comorbidity with body mass index (BMI) of 50.0 to 59.9 in adult (HCC) documented in this encounter Additional Health Concerns Assessment Noted Time PHQ-9 Depression Total Score: 8 03/30/20 25 9:58 AM EDT documented as of this encounter Care Teams Pipelines Superintendent Relationship Specialty Start Date End Date Amberly Oliver NP [address] [place] [address] PCP - General Family Medicine 06/18/23 Carol Ayoub Senior Research ManagerAmpoule Washing Machine Operator 12/17/23 documented as of this encounter
--- OUTSIDE RECORDS SUMMARY | 2025-07-16 12:28 | XMS_ITS | Encounter Summary ---
Author Organization [employer] Address [address] [facility] 7t [place] [address] Care Team Providers Care Information Technology Account Manager Name Role Phone Amberly Oliver SHELLI Primary Care Provider [phone] Encounter Details Date Type Department Care Team (Latest Contact Info) Description 07/16/2025 Travel Social History Tobacco Use Types Packs/Day Years Used Date Smoking Tobacco: Never Passive Smoke Exposure: Never Smokeless Tobacco: Never Alcohol Use Standard [...] Description 08/07/2025 10:00 AM EST Clinical Support [facility] DIABETES/NUTRITION [address] [place] [address] [place] [address] documented as of this encounter Visit Diagnoses Not on filedocumented in this encounter Additional Health Concerns Assessment Noted Time PHQ-9 Depression Total Score: 8 03/30/20 25 9:58 AM EDT documented as of this encounter Care Teams Information Technology Account Manager Relationship Specialty Start Date End Date Amberly Oliver NP [address] [place] [address] PCP - General Family Medicine 06/18/23 Carol Ayoub Lead Database AdministratorValve Tester 12/17/23 documented as of this encounter
--- OUTSIDE RECORDS SUMMARY | 2025-07-16 12:28 | XMS_ITS | Encounter Summary ---
Author Organization [employer] Address [address] [facility] [address] [place] [address] Care Team Providers Care Buttonhole Maker Name Role Phone Amberly Oliver NP Primary Care Provider [phone] Reason for Visit * Reason Onset Date Comments Chart Prep 07/13/2025 Encounter Details Date Type Department Care Team ([facility] Contact Info) Description 07/13/2025 Telephone [facility] MEDICINE [address] [place] [address] Amberly Oliver NP [address] [place] [address] Chart Prep Social History Tobacco Use Types Packs/Day Years [...] encounter Miscellaneous Notes * Telephone Encounter - Tonny Elliott MA - 07/13/2025 2:34 PM EDT Chart Prep Labs: done Images: not applicable Referrals: Booked for nutrition 07-16-2025 at 10:15 am Vaccines due: Covid, Flu, and DTAPMeningococcal B Vaccine Screenings: not applicable Overdue care gaps: Tobacco documented in this encounter Plan of Treatment Upcoming Encounters Date Type Department Care Team (Late st Contact Info) Description 08/07/2025 10:00 AM EST Clinical Support [facility] DIABETES/NUTRITION [address] [place], [place] [phone] Natalia Conteh [address] [place] [address] documented as of this encounter Visit Diagnoses Not on filedocumented in this encounter Additional Health Concerns Assessment Noted Time PHQ-9 Depression Total Score: 8 03/30/20 25 9:58 AM EDT documented as of this encounter Care Teams Buttonhole Maker Relationship Specialty Start Date End Date Amberly Oliver NP [address] [place] [id number] PCP - General Family Medicine 06/18/23 Carol Ayoub Web Content ExecutiveMontessori Lead Teacher 12/17/23 documented as of this encounter
--- OUTSIDE RECORDS SUMMARY | 2025-07-16 12:28 | XMS_ITS | Clinical Summary ---
Author Organization [facility] Address [address] [place] [address] [place] [phone] Phone Care Team Providers Care Gelatin Maker Utility Name Role Phone [facility], [facility] MD Primary Care Provider Allergies No known active allergies Medications levETIRAcetam (KEPPRA) 250 MG tablet Take 250 mg by mouth 2 (two) times a day. Active Social History Tobacco Use Types Packs/Day Years Used Date Smoking Tobacco: Never Assessed Education Answer Date Recorded Are you interested in more education? Not on choco e 01/08/2023 Are you concerned about learning? Not on file 01/08/2023 No 01/08/2023 No 01/08/2023 Digital Access Answer Date Recorded No 02/09/2023 No 02/09/2023 Reliable internet access at home? Not on file 02/09/2023 Device with a working camera? Not on file Comments Unknown Sex and Gender Information Value Date Recorded Sex Assigned at Not on file Legal Sex Female 1:27 PM EDT Gender Identity Not on file Sexual Orientation Not on file Last Filed Vital Signs Vital Sign Reading Time Taken Comments Blood Pressure 114/60 03/04/2020 2:41 PM EDT Pulse 90 03/04/2020 2:41 PM EDT Temperature 37.3 C (99.1 F) 03/04/2020 1:38 PM EDT Respiratory Rate 18 03/04/2020 2:41 PM EDT Oxygen Saturation 96% 03/04/2020 2:41 PM EDT Inhaled Oxygen Concentration - - Weight - - Height - - Body Mass Index - - Plan of Treatment Not on file Medical Devices Not on file Insurance C3 ACO C3 ACO C3 ACO COOPERATIVE C3 ACO C3 ACO C3 ACO C[address] [place] [address] [place] [address] [place] [address] [place] [address] C3 ACO Care Teams Gelatin Maker Utility Relationship Specialty Start Date End Date [facility] [address] [place] [address] PCP - General 03/04/20 Additional Source Comments The information contained in this document represents components of the legal health record. It is not the complete legal health record.[facility]
--- OUTSIDE RECORDS SUMMARY | 2025-07-16 12:28 | XMS_ITS | Encounter Summary ---
Author Organization [employer] Address [address] [facility] [address] [place] [address] Care Team Providers Care Sewing Demonstrator Name Role Phone Amberly Oliver NP Primary Care Provider [phone] Reason for Visit * Reason Onset Date Comments Reschedule 01/12/2024 Encounter Details Date Type Department Care Team ([facility] Contact Info) Description 01/12/2024 Telephone [facility] MEDICINE [address] [place] [address] Amberly Oliver NP [address] [place] [address] Reschedule Social History Tobacco Use Types Packs/Day [...] Description 08/07/2025 10:00 AM EST Clinical Support [facility] DIABETES/NUTRITION [address] [place] [address] Natalia Conteh, CHRISTINE [address] [place] [address] documented as of this encounter Visit Diagnoses Not on filedocumented in this encounter Additional Health Concerns Assessment Noted Time PHQ-9 Depression Total Score: 12 023 9:36 AM EDT documented as of this encounter Care Teams Sewing Demonstrator Relationship Specialty Start Date End Date Amberly Oliver NP [address] [place] [address] PCP - General Family Medicine 06/18/23 Carol Ayoub Bin Tripper OperatorEducation Coordinator 12/17/23 documented as of this encounter
--- OUTSIDE RECORDS SUMMARY | 2025-07-16 12:28 | XMS_ITS | Clinical Summary ---
Author Organization [employer] Address [address] [place] [address] [address] [place] [address] Care Team Providers Care Political Researcher Name Role Phone Amberly Oliver SHELLI Primary Care Provider [phone] Allergies No known active allergies Medications ibuprofen 200 MG tablet 1 - 2 tablet by oral route every 6 to 8 hours prn fever or pain 04/03/20 19 Active levETIRAcetam (Keppra) 250 MG tablet 1 tab po BID Active albuterol 108 (90 Base) MCG/ACT inhalerIndicati ons:Mild intermittent asthma without complication Inhale 2 puffs every 6 (six) hours if needed for wheezing. 18 g 11 03/15/20 24 Active Blood Pressure kitIndications: Elevated BP without diagnosis of hypertension 1 Units Once per day. 1 kit 03/15/20 24 Active traZODone (Desyrel) 50 MG tabletIndicatio ns:Insomnia, unspecified type Take 0.5-1 tablets (25-50 mg) by mouth if needed at bedtime for sleep. 90 tablet 1 04/12/20 24 Active clindamycin (Cleocin T) 1 % lotionIndicatio ns:Hidradenitis suppurativa APPLY TOPICALLY TWICE A DAY 60 mL 1 05/19/20 24 Active metFORMIN, OSM, (Fortamet) 500 MG 24 hr tabletIndicatio ns:Hidradenitis suppurativa Take 1 tablet (500 mg) by mouth with evening meal. Do not crush, chew, or split. 30 tablet 11 09/08/20 24 025 Active cholecalciferol (Vitamin D-3) 20 MCG (800 UNIT) tabletIndicatio ns:Hypovitamino sis D Take 1 tablet (20 mcg) by mouth Once per day. 90 tablet 1 03/30/20 25 026 Active melatonin 5 MG tabletIndicatio ns:Insomnia, unspecified type TAKE 1 TABLET BY MOUTH AT BEDTIME NEEDED SLEEP 30 tablet 5 05/09/20 25 Active minocycline 100 MG capsuleIndicati ons:Hidradeniti s suppurativa TAKE 1 CAPSULE BY MOUTH DAILY 30 capsule 2 07/06/20 25 Active phentermine 15 MG capsuleIndicati ons:Class 3 severe obesity due to excess calories without serious comorbidity with body mass index (BMI) of 50.0 to 59.9 in adult (HCC) Take 1 capsule (15 mg) by mouth before breakfast for 14 days. 14 capsule 07/16/20 25 025 Active topiramate (Topamax) 25 MG tabletIndicatio ns:Class 3 severe obesity due to excess calories without serious comorbidity with body mass index (BMI) of 50.0 to 59.9 in adult (HCC) Take 1 tablet (25 mg) by mouth before breakfast for 14 days. Take with phentermine 14 tablet 07/16/20 25 025 Active minocycline 100 MG capsuleIndicati ons:Hidradeniti s suppurativa TAKE 1 CAPSULE (100 MG) BY MOUTH ONCE PER DAY. 30 capsule 2 03/02/20 25 025 Discontinued Active Problems Problem Noted [...] months or sooner PRN Moderate major depression (CMS/HCC) 03/04/2023 Overview (03/04/2023): PHQ9 score 13 today [...] pump w/ spacer Followup PRN Pituitary microadenoma (CMS/HCC) 08/15/2022 Overview (07/29/2023): Images from the original note were not included. MRI 03/2023 Seizure (CMS/HCC) 08/15/2022 Overview (03/04/2023): Last seizure activity: 12/06/22: C discharge generalized seizures; Tonic clonic seizures witnessed [...] Encounters Date Type Department Care Team Description 07/16/2025 10:15 AM EST Office Visit [facility] [address] [place] [phone] Amberly Oliver NP Elevated TSH (Primary Dx); Class 3 severe obesity due to excess calories without serious comorbidity with body mass index (BMI) of 50.0 to 59.9 in adult ([facility]) 07/16/2025 Travel 07/13/2025 Telephone [facility] [address] [place] [phone] Amberly Oliver NP Chart Prep 07/10/2025 11:00 AM EDT Immunization [address] [address] Encounter for immunization 07/10/2025 Travel 07/06/2025 Refill [facility] [address] [place] [address] Amberly Oliver NP Hidradenitis suppurativa 07/02/2025 9:00 AM EDT Nutrition [facility] [address] [place] [phone] Class 3 severe obesity due to excess calories without serious comorbidity with body mass index (BMI) of 50.0 to 59.9 in adult ([facility]) 07/02/2025 Travel 06/08/2025 11:00 AM EDT Clinical Support [facility] [address] [place] [address] [place] [id number] Juana Peter, NIRALI Encounter for immunization 06/08/[address] [place] [address] Nutrition referral 06/08/[address] Nutrition referral 06/08/2025 Travel 05/29/2025 [address]phone [address] [place] [address] Amberly Oliver NP Results 05/28/2025 10:30 AM EDT Procedure [address] [facility] [place] [id number] Stephanie Lau CNM Cervical cancer screening (Primary Dx); Screening examination for venereal disease 05/28/2025 Results Follow-[place] [address] [place] [address] Stephanie Lau CNM Hepatitis B Surface Antibody, Qualitative, Pap Smear, STI testing add on (NG, CT, Trich), Additional followed-up results: 7 05/28/2025 Orders Only [facility] [place] [facility] [place] [id number] Amberly Oliver NP 05/28/2025 Results Follow-Up [address] [place] [address] Stephanie Lau CNM Lipid Panel, Standard, Hemoglobin A1c, TSH W/Reflex to FT4, Comprehensive Metabolic Panel 05/28/2025 Travel 05/25/[address] [place] [address] Stephanie Lau CNM CHART PREP 05/09/[address] [address] Amberly Oliver NP october recall 05/09/[address] [address] Amberly Oliver NP Insomnia, unspecified type 04/17/2025 [address], [place] [phone] Stephanie Lau CNM chart prep from Last 3 Months Immunizations Immunization Administration Dates Next Due DTaP 04/14/2007, 5,2003,08/14,2003 HPV 9-Valent 05/22/2016,05/14/2015 Hep A, ped/adol, 2 dose 05/22/2016,05/14/2015 Hep B, Adolescent or Pediatric 05/06/2004,2003,2003 HepB-CpG 07/10/2025,06/08/2025 Hib (HbOC) 12/08/2004, 4,2003,04/19 IPV 04/14/2007, 4,2003,04/19 [...] Mass Index 54 07/16/2025 9:41 AM EST Plan of Treatment Upcoming Encounters Date Type Department Care Team (Late st Contact Info) Description 08/07/2025 10:00 AM EST Clinical Support [facility] [address] [place] [address] Grace Contehe, RD [address] [place] [address] Health Maintenance Due Date Last Done Comments Meningococcal B Vaccine (1 of 2 - Standard) 2019 Pneumococcal Vaccine: Pediatrics (0 to 5 Years) and At-Risk Patients (6 to 49) Years (1 of 2 - PCV) 2022 12/08/2004, 2003, 2003, Additional history exists COVID-19 Vaccine ( - season) 2025 DTaP/Tdap/Td Vaccines (7 - Td or Tdap) 05/14/2025 05/14/2015, 04/14/2007, 12/08/2004, Additional history exists Influenza Vaccine (#1) 2025 , 10/19/2017, 05/25/2013, Additional history exists Alcohol/Substance Use Screening 07/21/2025 07/21/2024 SDOH Screening 03/23/2026 03/23/2025 Depression Screening 03/30/2026 03/30/2025, 03/30/20 25 Disability Screening 03/30/2026 03/30/2025 Chlamydia and Gonorrhea Screening 05/28/2026 05/28/2025, 05/28/2025, 05/28/2025, Additional history exists Family Planning (PISQ) 05/28/2026 05/28/2025 Tobacco Screening 07/16/2026 07/16/2025 Pap Smear 05/28/2028 05/28/2025 Lipid Panel 05/28/2030 05/28/2025, 07/21/2024 Zoster Vaccines (1 of 2) 2053 RSV Patients and Patients Aged 60 years or older (1 - 1-dose 75+ series) 2078 HIB Vaccines Completed 12/08/2004, 09/13, 2003, Additional history exists IPV Vaccines Completed 04/14/2007, 04/14, 2003, Additional history exists HPV Vaccines Completed 05/22/2016, 05/14/2015 Hepatitis A Vaccines Completed 05/22/2016, 05/14/20 Meningococcal Vaccine Completed 04/20/2019, 015 HIV Screening Completed 05/28/2025 Hepatitis C Screening Completed 05/28/2025 Hepatitis B Vaccines Completed 07/10/2025, 06/08/2025, 05/06/2004, Additional history exists RSV under 20 months Aged Out No longe r eligible based on patient's age to complete this topic Rotavirus Vaccines Aged Out No longer eligible based on patient's age to complete this topic Procedures Procedure Name Priority Date/Time Associated Diagnosis Comments CHLAMYDIA/N. GONORRHOEAE RNA, TMA, RECTAL Routine 05/28/2025 10:45 AM EDT Screening examination for venereal disease CHLAMYDIA/N. GONORRHOEAE RNA, TMA, THROAT Routine 05/28/2025 10:45 AM EDT Screening examination for venereal disease T4, FREE Routine 05/28/2025 10:23 AM EDT HIV 1/2 ANTIGEN/ANTIBODY, FOURTH GENERATION W/RFL Routine 05/28/2025 10:23 AM EDT Screening examination for venereal disease SYPHILIS SCREEN Routine 05/28/2025 10:23 AM EDT Screening examination for venereal disease HEPATITIS C AB W/REFL TO HCV RNA, QN, PCR Routine 05/28/2025 10:23 AM EDT Screening examination for venereal disease HEPATITIS B SURFACE ANTIBODY, QUALITATIVE Routine 05/28/2025 10:23 AM EDT Screening examination for venereal disease HEPATITIS B CORE AB TOTAL Routine 05/28/2025 10:23 AM EDT Screening examination for venereal disease HEPATITIS B SURFACE ANTIGEN, EIA Routine 05/28/2025 10:23 AM EDT Screening examination [...] 50.0 to 59.9 in adult CHLAMYDIA/N. GONORRHOEAE AND T. VAGINALIS RNA, QUAL,TMA Routine 05/28/2025 12:00 AM EDT Screening examination for venereal disease PAP SMEAR Routine 05/28/2025 12:00 AM EDT Cervical cancer screening from Last 3 Months Results * Chlamydia/N. Gonorrhoeae RNA, TMA, Throat (05/28/2025 10:45 AM EDT) C. Trachomatis RNA TMA, Throat NOT DETECTED [facility] N. gonorrhoeae RNA TMA, Throat NOT DETECTED [facility] Comment:REFERENCE RANGE: NOT DETECTEDMethodology: Coil Repair Technician Mediated Amplification (TMA) to detect RNA.The analytical performance characteristics of this assayhave been determined by [employer]. The modificationshave not been cleared or approved by the FDA. This assay hasbeen validated pursuant to the CLIA regulations and is usedfor clinical purposes.For additional information, please refer tohttps://education.[employer]/faq/RLT327(This link is being provided for informational/educationalpurposes only.)THIS TEST WAS PERFORMED AT:[employer]/[id number] [place] [id number] GUTIERREZ MD,PHD,NATTY Swab Throat swab / Unknown 05/28/2025 10:45 AM EDT 05/28/2025 1:24 PM EDT Stephanie GREEN LAB MICROBIOLOGY - GENERA L ORDERABLES Final Result Performing Organization Address [facility]/ZIP Co de Phone Number [facility] [address] [place] [phone] * Chlamydia/N. Gonorrhoeae RNA, TMA, Rectal (05/28/2025 10:45 AM EDT) C.Trachomatis RNA TMA, Rectal NOT DETECTED [facility] N.Gonorrhoeae RNA TMA, Rectal NOT DETECTED [facility] Comment:REFERENCE RANGE: NOT DETECTEDMethodology: Coil Repair Technician Mediated Amplification (TMA) to detect RNA.The analytical performance characteristics of this assayhave been determined by [employer]. The modificationshave not been cleared or approved by the FDA. This assay hasbeen validated pursuant to the CLIA regulations and is usedfor clinical purposes.THIS TEST WAS PERFORMED AT:[employer]/[id number] [place] [id number] GUTIERREZ MD,PHD,NATTY Swab Anal structure / Unknown 05/28/2025 10:45 AM EDT 05/28/2025 1:24 PM EDT Stephanie GREEN LAB MICROBIOLOGY - GENERA L ORDERABLES Final Result Performing Organization Address City/[facility]/ZIP Co de Phone Number [facility] [address] [place] [phone] * Syphilis Screen (05/28/2025 10:23 AM EDT) Syphilis Screen Nonreactive Nonreactive [facility] Blood Venous blood specimen / Unknown 05/28/2025 10:23 AM EDT 05/28/2025 11:12 AM EDT Stephanie Lau [facility] LAB BLOOD ORDERABLES Jie l Result Performing Organization Address [facility]/ZIP Co de Phone Number [facility] [address] [place] [phone] * (ABNORMAL) TSH W/Reflex to FT4 (05/28/2025 10:23 AM EDT) Pathologist [facility] TSH reflex Free T4 4.36(H) 0.32 - 4.0 uIU/mL [facility] Blood Venous blood specimen / Unknown 05/28/2025 10:23 AM EDT 05/28/2025 11:12 AM EDT Amberly Rachel LAST MODEL DEPARTMENT SUPERVISOR LAB BLOOD ORDERABLES Final Resu lt Performing Organization Address [facility] Co de Phone Number [facility] [address] [place] [phone] * Hepatitis C Antibody with Reflex to HCV, RNA, Quantitative, Real-Time PCR (05/28/2025 10:23 AM EDT) Pathologist [facility] Hepatitis C Antibody Nonreactive Nonreactive [facility] Comment:Antibodies to HCV no t detected; does not exclude early acuteHCV infection. Blood Venous blood specimen / Unknown 05/28/2025 10:23 AM EDT 05/28/2025 11:12 AM EDT Stephanie Lau [facility] LAB BLOOD ORDERABLES Jie l Result Performing Organization Address [facility] Co de Phone Number [facility] [address] [place] [phone] * Hepatitis B surface antigen, EIA (05/28/2025 10:23 AM EDT) Pathologist [facility] Hepatitis B Surface Ag Negative Negative [facility] Blood Venous blood specimen / Unknown 05/28/2025 10:23 AM EDT 05/28/2025 11:12 AM EDT [facility]LO[facility] ORDERABLES Jie l Result Performing Organization Address City/[facility]/ZIP Co de Phone Number [facility] [address] [place] [phone] * Hepatitis B Core Antibody, Total (05/28/2025 10:23 AM EDT) Pathologist [facility] Hepatitis B Core Antibody Nonreactive Nonreactive [facility] Blood Venous blood specimen / Unknown 05/28/2025 10:23 AM EDT 05/28/2025 11:12 AM EDT [facility] BLOOD ORDERABLES Jie l Result Performing Organization Address City/[facility] Co de Phone Number [facility] [address] [place] [phone] * HIV-1/2 Antigen and Antibodies, Fourth Generation, with Reflexes (05/28/2025 10:23 AM EDT) Pathologist [facility] HIV AB/AG Nonreactive Nonreactive [facility] Comment:HIV-1 p24 Ag and/or HIV-1/HIV-2 Ab not detected.A test result that is nonreactive does not exclude thepossibility of exposure to or infection with HIV-1 and/orHIV-2. Nonreactive results in this assay for individualswith prior exposure to HIV-1 and/or HIV-2 may be due toantigen and antibody levels that are below the limit ofdetection of this assay.The [employer] HIV Ag/Ab Combo assay result andsupplemental assay results should be interpreted inconjunction with the patient's clinical presentation,history and other laboratory results. If the results areinconsistent with clinical evidence, additional testing issuggested to confirm the result. Blood Venous blood specimen / Unknown 05/28/2025 10:23 AM EDT 05/28/2025 11:12 AM EDT Stephanie Nba [facility] LAB BLOOD ORDERABLES Jie l Result Performing Organization Address [facility] Co de Phone Number [facility] [address] [place] [phone] * Hepatitis B Surface Antibody, Qualitative (05/28/2025 10:23 AM EDT) ~Hepatitis B Surface Antibody NONREACTIVE Nonreactive [facility] Comment:Nonreactive: < 8.00 mIU/mL Blood Venous blood specimen / Unknown 05/28/2025 10:23 AM EDT 05/28/2025 11:12 AM EDT Stephanie Nba [facility] LAB BLOOD ORDERABLES Jie l Result Performing Organization Address [facility] Co de Phone Number [facility] [address] [place] [phone] * T4, Free (05/28/2025 10:23 AM EDT) Free T4 (Free Thyroxine) 0.90 0.71 - 1.85 ng/dL [facility] 05/28/2025 10:2 3 AM EDT 05/28/2025 11:12 AM EDT Amberly Oliver LAST MODEL DEPARTMENT SUPERVISOR LAB BLOOD ORDERABLES Final Resu lt Performing Organization Address [facility] Co de Phone Number [facility] [address] [place] [phone] * Hemoglobin A1c (05/28/2025 10:23 AM EDT) Hemoglobin A1c 5.1 <6.0 % [facility] Comment:Hemoglobin A1C Refer ence Range Adults: 4.8 - 6.0 % Non diabetic: < 6.0 % Goal: < 7.0 %Additional Action Suggested: > 8.0 %Note: Hemoglobin A1c results are invalid for patients with abnormal amounts of HbF. Blood transfusions may impact the HbA1c concentration in the patient sample. Estimated Average Glucose 100 mg/dL [facility] Comment:eAG = Estimated ave rage glucose which is %A1C expressed asaverage glucose, using the formula of the K8B-PlayngzVjwpxae Glucose study (ADAG), Diabetes Care, Vol.31,#8,Apr. 2007 Blood Venous blood specimen / Unknown 05/28/2025 10:23 AM EDT 05/28/2025 11:12 AM EDT Amberly Oliver LAST MODEL DEPARTMENT SUPERVISOR LAB BLOOD ORDERABLES Final Resu lt [facility] [address] [place] [phone] * (ABNORMAL) Lipid Panel, Standard (05/28/2025 10:23 AM EDT) Triglycerides 134 <150 mg/dL [facility] Comment:Desirable Triglyceri de: less than 150 mg/dLBorderline High Triglyceride 150-199 mg/dLHigh Triglyceride: 200-499 mg/dLVery High Triglyceride: greater than or equal to 5OO mg/dL Cholesterol 177 <200 mg/dL [facility] Comment:Desirable Cholestero l: less than 200 mg/dLBorderline High Cholesterol: 200-239 mg/dLHigh Cholesterol: greater than 239 mg/dL LDL Cholesterol Calculated 102(H) <100 mg/dL [facility] Comment:Desirable LDL: less than 100 mg/dLNear Optimal/Above Optimal LDL: 110- 129 mg/dLBorderline High LDL: 130-159 mg/dLHigh LDL: 160-189 mg/dLVery High LDL: greater than or equal to 190 mg/dL HDL Cholesterol 49 >40 mg/dL [facility] Comment:Desirable HDL: great er than 40 mg/dL Note: This HDL assay may give artificially low results in patients with liver disease. Blood Venous blood specimen / Unknown 05/28/2025 10:23 AM EDT 05/28/2025 11:12 AM EDT us Amberly Oliver LAST MODEL DEPARTMENT SUPERVISOR LAB BLOOD ORDERABLES Final Resu lt [facility] [address] [place] [phone] * (ABNORMAL) Comprehensive Metabolic Panel (05/28/2025 10:23 AM EDT) Sodium 142 135 - 145 mmol/L [facility] Potassium 3.7 3.3 - 5.1 mmol/L [facility] Chloride 112(H) 96 - 108 mmol/L [facility] Carbon Dioxide 17(L) 22 - 29 mmol/L [facility] Anion Gap 17 12 - 20 [facility] Urea Nitrogen (BUN) 12 9 - 16 mg/dL [facility] Creatinine, Serum 0.65 0.5 - 1.4 mg/dL [facility] Estimated Glomerular Filt Rate >60 [facility] Comment:Chronic Kidney Disea se: Estimated GFR < 60 mL/min/1.39b3Dgsyro Kidney Disease: Estimated GFR < 15 mL/min/1.73m2 Glucose 99 60 - 115 mg/dL [facility] Calcium 9.5 8.4 - 10.2 mg/dL [facility] Bilirubin, Total 0.3 0.0 - 1.0 mg/dL [facility] Aspartate Amino Transferase 39(H) 5 - 31 U/L [facility] Alanine Aminotransferase 44(H) 0 - 31 U/L [facility] Total Protein 7.2 6.5 - 8.0 g/dL [facility] Albumin Level 4.5 3.5 - 5.0 g/dL [facility] Alkaline Phosphatase 64 39 - 117 U/L [facility] Blood Venous blood specimen / Unknown 05/28/2025 10:23 AM EDT 05/28/2025 11:12 AM EDT Amberly Oliver LAST MODEL DEPARTMENT SUPERVISOR LAB BLOOD ORDERABLES Final Resu lt Performing Organization Address [facility]/ZIP Co de Phone Number [facility] [address] [place] [phone] * STI testing add on (NG, CT, Trich) (05/28/2025 12:00 AM EDT) Trichomonas (NAAT) NOT DETECTED [facility] CTNG Ref Lab NOT DETECTED NOT DETECTED [facility] NG Ref Lab NOT DETECTED NOT DETECTED [facility] ThinPrep vial Cervix uteri structure / Unknown 05/28/2025 05/28/2025 3:49 PM EDT Narrative [facility] - 06/07/2025 8:32 AM EDT Collection Date: [id number] by: JACOBY Pope: Cervix Stephanie GREENM LAB CYTOLOGY ORDERABLES F inal Result Performing Organization Address [facility] Co de Phone Number [facility] [address] [place] [phone] * Pap Smear (05/28/2025 12:00 AM EDT) Swab Cervix uteri structure / Unknown 05/28/2025 05/28/2025 3:49 PM EDT Narrative [facility] - 05/31/2025 2:35 PM EDT ----- ------- Name: Molly Greenberg Ángel Age/Sex: 20/F : 2005 Unit#: [id number] Attend Dr: Re05/28/25 Status: PRE REF Location: [facility] Disch: ----- ------- SPEC : [id number] RECD: 05/28/25-1548 STATUS: GOLDEN INIGUEZ NUM: [id number] FERNANDO: 05/28/25-[address]: STEPHANIE LAU CNM ENTERED: 05/28/25 SP TYPE: Pap Smr OT DR: ORDERED: Pap Smear Interpretation Satisfactory for evaluation. Negative for intraepithelial lesion or malignancy. Clinical Information LMP: Unknown date Previous PAP test: Unknown date/findings Other history: Cervical cancer screening Material Received ThinPrep-Cervical PAP Disclaimer As of July 05, 2024, the technical services to include automated prescreening performed by the ThinPrep Imaging System, PAP screening and HPV testing will be performed at [facility] (CLIA #[id number]), [address] [place] [address]. Testing for HPV was performed using the [employer] TOI 6800 system. The presence of HPV in the female genital tract is associated with a number of diseases, including cervical carcinoma. The HPV DNA high risk pool tests for HPV 31, 33, 35, 39, 45, 51, 52, 56, 58, 59, 66 and 68. The testing for HPV 16 and 18 genotypes has also been performed. A positive result indicates detection of nucleic acid sequences from one or more subtypes, whereas a negative result indicates such sequences were not detected. All professional services are performed by [facility] ([address] [place] [address], [place] [address]; ; CLIA #[id number]). The PAP Test is a screening procedure with the inherent possibility of both false negative and false positive results. Results should be interpreted in the context of historic and current clinical findings. Reliability of the PAP Test is enhanced by performing the test on a regular repetitive basis. ----- ------- Signed (signature on file) PAT Bo ([facility]) 05/31/25 1435 ----- ------- END OF REPORT Stephanie Lau [facility] CYTOLOGY ORDERABLES F inal Result [facility] [address] [place] [address] [phone] from Last 3 Months Insurance C3 Care Teams Political Researcher Relationship Specialty Start Date End Date Amberly Oliver NP [address] [place] [id number] PCP - General Family Medicine 06/18/23 Carol Ayoub Dedicated DriverAquatics Lifeguard 12/17/23
--- OUTSIDE RECORDS SUMMARY | 2025-07-16 12:28 | XMS_ITS | Encounter Summary ---
Author Organization [employer] Address [address] [facility] 7[address] [place] [address] Care Team Providers Care Cinetechnician Name Role Phone Amberly Oliver NP Primary Care Provider [phone] Reason for Visit * Reason Onset Date Comments Appointment Request 09/20/2023 Encounter Details Date Type Department Care Team ([facility] Contact Info) Description 09/20/2023 Telephone [facility] MED[facility]INE [address] [place] [address] Amberly Oliver NP [address] [place] [address] Appointment Request Social History Tobacco Use Types [...] (Keppra)250 MG tablet. Please contact pt at [phone]. If any questions please contact Carol at [phone]. documented in this encounter Plan of Treatment Upcoming Encounters Date Type Department Care Team (Late st Contact Info) Description 08/07/2025 10:00 AM EST Clinical Support [facility] DIABETES/NUTRITION [address] [place] [address] [place] [address] documented as of this encounter Visit Diagnoses Not on filedocumented in this encounter Additional Health Concerns Assessment Noted Time PHQ-9 Depression Total Score: 12 023 9:36 AM EDT documented as of this encounter Care Teams Cinetechnician Relationship Specialty Start Date End Date Amberly Oliver NP [address] [place] [address] PCP - General Family Medicine 06/18/23 Carol Ayoub Life GuardFacilities Project Manager 12/17/23 documented as of this encounter
--- OUTSIDE RECORDS SUMMARY | 2025-07-16 12:28 | XMS_ITS | Encounter Summary ---
Author Organization [employer] Address [address] [facility] 7t [place] [address] Care Team Providers Care Lithographic General Worker Name Role Phone Amberly Oliver SHELLI Primary Care Provider [phone] Encounter Details Date Type Department Care Team ([facility] st Contact Info) Description 05/28/2025 Results Follow-Up [facility] MEDICINE [address] [place] [address] Tala Arango, NORMA [address] [place] [address] Hepatitis B Surface Antibody, Qualitative, Pap Smear, STI testing add on (NG, CT, Trich), Additional followed-up results: 7 Social History Tobacco Use Types Packs/Day Years [...] Encounter Note - Tala Arango CNM - 06/07/2025 9:45 AM EDT That would be great - thanks! * Result Encounter Note - Tala Arango CNM - 06/07/2025 8:05 AM EDT Trichomonas still pending off pap based STI labs. Could you please followup with lab? Thanks! documented in this encounter Plan of Treatment Upcoming Encounters Date Type Department Care Team (Late st Contact Info) Description 08/07/2025 10:00 AM EST Clinical Support [facility] DIABETES/NUTRITION [address] [place] [address] [place], [place] [phone] documented as of this encounter Visit Diagnoses Not on filedocumented in this encounter Additional Health Concerns Assessment Noted Time PHQ-9 Depression Total Score: 8 03/30/20 25 9:58 AM EDT documented as of this encounter Care Teams Lithographic General Worker Relationship Specialty Start Date End Date Amberly Oliver NP [address] [place] [address] PCP - General Family Medicine 06/18/23 Carol Ayoub Sample WorkerBotany Professor 12/17/23 documented as of this encounter
--- OUTSIDE RECORDS SUMMARY | 2025-07-16 12:28 | XMS_ITS | Encounter Summary ---
Author Organization [employer] Address [address] [facility] [address] [place] [address] Care Team Providers Care Driver Guide Name Role Phone Amberly Oliver NP Primary Care Provider [phone] Reason for Visit * Reason Onset Date Comments Results 05/29/2025 Encounter Details Date Type Department Care Team ([facility] Contact Info) Description 05/29/2025 Telephone [facility] MEDICINE [address] [place] [address] Amberly Oliver NP [address] [place] [address] Results Social History Tobacco Use Types Packs/Day Years [...] * Telephone Encounter - Dave Ayoub - 05/29/2025 12:59 PM EDT TC from pt requesting call back regarding Results. Type of results: Labs Date when done: 05/28/25 Facility: [facility] documented in this encounter Plan of Treatment Upcoming Encounters Date Type Department Care Team (Late st Contact Info) Description 08/07/2025 10:00 AM EST Clinical Support [facility] DIABETES/NUTRITION [address] [place] [address] [place] [address] documented as of this encounter Visit Diagnoses Not on filedocumented in this encounter Additional Health Concerns Assessment Noted Time PHQ-9 Depression Total Score: 8 03/30/20 9:58 AM EDT documented as of this encounter Care Teams Driver Guide Relationship Specialty Start Date End Date Amberly Oliver NP [address] [place] [address] PCP - General Family Medicine 06/18/23 Carol Ayoub [employer] Machine OperatorCargo Worker 12/17/23 documented as of this encounter
== END 2025-07-16 10:25 | disposition home or self-care (01) ==
LOC: HO.HHCL 10:24
PROVIDERS: PCP Registered Nurse; Visit Provider Nurse Practitioner
DX: R79.89 Other specified abnormal findings of blood chemistry (principal)
CPT/HCPCS: 36415; 84443; 84480

== ENCOUNTER 2025-07-18 14:02 | Outpatient (REF) | payer MEDICAID, SELFPAY | END 2025-07-18 14:03 | disposition home or self-care (01) | LOC: HO.LAB 14:02 | PROVIDERS: Visit Provider Psychiatry & Neurology Neurology | DX: D35.2 Benign neoplasm of pituitary gland (principal); G93.2 Benign intracranial hypertension; G40.909 Epilepsy, unspecified, not intractable, without status epilepticus; E24.9 Cushing's syndrome, unspecified; Z79.899 Other long term (current) drug therapy | CPT/HCPCS: 36415; 84146; 99212 ==

== ENCOUNTER 2025-07-18 14:02 | Outpatient (AMB) | payer MEDICAID, SELFPAY ==
--- NOTE | 2025-07-18 14:21 | A.OFFVIS_ITS ---
Intake Visit Reasons: IIH, pit adenoma, seizure do Allergies No Known Allergies (No Known Allergies*) Allergy (Verified 11/04/24 09:28) HPI Comments Details: 20 y/o woman with obesity, idiopathic intracranial HTN (CSF OP in Sep 2024: 33cm), depression, a pitutary microadenoma, optic neuropathy, and seizure disorder resulting in shaking and passing out. She is presenting with recent seizure episodes, notably last occurring on , exhibiting generalized tonic-clonic activity and near-fall incidents. She managed this episode by grasping support and sitting promptly. Her epilepsy is managed currently with Keppra, for which she requires refills. She additionally presents with hypertension, treated pharmacologically. A notable aspect of her presenting concerns includes weight management issues, potentially attributed to an underlying endocrine disorder. This suspicion arises partly due to irregular periods and specific body weight distribution. The patient is on cabergoline therapy, indicating possible hyperprolactinemia, alongside antihype rtensive treatment. Her overall systemic symptoms include occasional mood changes, acne, increased body hair, and intermittent menstrual abnormalities. There is a history of purple rashes on her body. [facility] Medical History Migraine Seizure disorder Asthma Surgical History No pertinent past surgical history Social History Household Members: Family Housing: Apartment Do you presently have visiting nurse or other home services: No Alcohol intake: never Patient Tobacco Use Status: Never used Tobacco e-Cigarette/Vaping Use: Never Used service: No Current occupational status: disabled Review of Systems Narrative - Neurological: Reports seizure activity; denies weakness. - Cardiovascular: Reports high blood pressure. - Endocrine: Reports irregular menstrual cycles; reports purple rashes, acne, and hirsutism. - Psychiatric: Reports occasional mood changes. - Metabolic: Reports weight management treatments; denies weakness otherwise. Physical Exam Exam Exam: Bridges face, mild buffalo hump. No acne or hirsuitism. Neuro Other: Mental Status: Alert and oriented to person, place, and time. Normal attention. Normal sponta neous speech, fluency, and comprehension. No obvious issues with mood and memory. Affect is appropriate. Cranial Nerves: CN II: Visual serrano full to confrontation, visual acuity intact. CN III, IV, : Pupils equal, round, reactive to light and accommodation. Extraocular movements are normal. CN V: Facial sensation is normal. CN VII: Facial movements symmetrical. CN VIII: Hearing intact to bedside conversation is normal. CN IX, X: Palate elevates symmetrically. CN XI: Shoulder shrug and head turn symmetrical. CN XII: Tongue midline without atrophy or fasciculations. Motor: Bulk and tone normal in all extremities. No significant muscle weakness in arms and legs. No drift. Reflexes: Deep tendon reflexes 2+ and symmetric. Plantar response down-going bilaterally. Coordination: [id number]-am-adwr and tidi-ul-gaxu testing normal. No dysmetria. Gait and Station: No obvious gait abnormality. No ataxia or instability. Extrapyramidal: Full facial expressions and blinking. No rigidity. Movements are appropriate with no tremor or abnormality. Speech: Normal; no dysarthria or tremor. Assessment & Plan Assessment & Plan (1) Idiopathic intracranial hypertension: Comment: [place] at [facility] [place]: OP 33cm, WBCs 1, RBCs 0, Glu 55, Pro 22.6, OCBs neg MRI brain WO at [facility] in March 2024: 8 x 6 x 6 mm pituitary lesion, couple of punctate WM lesions Code(s): G93.2 - Benign intracranial hypertension Category: Medical (2) Pituitary adenoma: Comment: MRI brain WO at [facility] in March 2023: 8 x 6 x 6mm left lateral pituitary adenoma MRI brain WWO at [facility] [place] Nov 2019: pitutary microadenoma (0.6 x 0.5 x 0.4 cm) Labs at [facility] in 2019: CBC, CMP, TSH, cortisol, Lipids all WNL.Prolactin level in 2022: 30.9. 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
--- OUTSIDE RECORDS SUMMARY | 2025-07-18 17:15 | XMS_ITS | Clinical Summary ---
Author Organization [facility] Address [address] [place] [address] [place] [address] Phone Care Team Providers Care Foot Specialist Name Role Phone [facility], [facility] MD Primary Care Provider Allergies No [...] ACO C3 ACO C3 ACO [address] [place] [address] [place] [address] [place] [address] [address] C3 ACO Care Teams Foot Specialist Relationship Specialty Start Date End Date [facility] [address] [place] [address] PCP - General 03/04/20 Additional Source Comments The information contained in this document represents components of the legal health record. It is not the complete legal health record.[facility]
== END 2025-07-18 15:57 | disposition home or self-care (01) ==
LOC: HO.HSM 14:03
PROVIDERS: Visit Provider Psychiatry & Neurology Neurology
DX: G93.2 Benign intracranial hypertension (principal); D35.2 Benign neoplasm of pituitary gland; G40.909 Epilepsy, unspecified, not intractable, without status epilepticus; E24.9 Cushing's syndrome, unspecified
CPT/HCPCS: 99214

== ENCOUNTER 2025-07-31 16:00 | Outpatient (AMB) | payer MEDICAID, SELFPAY ==
--- NOTE | 2025-07-31 16:08 | A.OFFVIS_ITS ---
Vital Signs 07/31/25 16:11 Height 4 ft 11 in Weight 255 lb 11.779 oz BMI 51.6 BP 128/76 Blood Pressure Location Rt brachial Position Sitting Pulse 70 Pulse Source Pulse Oximeter Pulse Oximetry (%) 96 Oxygen Delivery Method Room Air Intake Visit Reasons: Judith's syndrome, unspecified? Intake Note: NEW Patient presents today to establish treatment for New Holstein's syndrome, unspecified: Warehouse Order Filler Required: No Accompanied by: Self / Same As Patient Allergies No Known Allergies (No Known Allergies*) Allergy (Verified 07/31/25 16:11) HPI Comments Details: 20 yo female with obesity, idiopathic intracranial HTN (CSF OP in Sep 2024: 33cm), depression, a pitutary microadenoma, optic neuropathy, and seizure disorder, seen in the office for evaluation of possible New Holstein's syndrome. She was found to have a pituitary tumor incidentally while there were working up seizures/IIH. She is not a reliable historian, she has poor medical literacy/poor understanding of her disease. Per records review, it seems like she was diagnosed with microprolactinoma in 2019, and has elevated prolactin levels since 2022, but she reports that she has been taking the medication since last year, but she later said that she cannot recall when she started taking the medication. She has been taking the medication consistently. Her PCP was the one who followed up the microprolactinoma and adjusted the Cabergoline levels. She did not have a follow up MRI after 2022. She cannot recall her Cabergoline dose, per PCP referal note, she might be taking 0.5mg daily. She reports chronic headaches from idiopathic intracranial HTN. No vision changes in her vision. No increase in foot or hand size. No thinning of skin. No bacilio stretch garza. Sometimes needs to use hands to stand from a chair. She denies breast discharge She is having regular periods. She reports always been in the bigger size, she has lost some weight in the last few months. Her PCP has prescribed a medication for weight loss (she can't recall the name- pills). Physical exam: General: Well appearing. NAD. Has Cushingoid appeareance with buffalo hump and crowe facies. Not Acromegalic Neck/Thyroid: Thyroid not palpable. CV: RRR, no murmur. No edema. Resp:Lungs clear to auscultation bilaterally Abdomen: Soft, nontender. nondistended Extremities/Neuro: No weakness or tremor of outstretched hands Laboratory Tests 05/10/20 12/06/22 12/06/22 11:00 15:57 16:31 Sodium 139 Potassium 4.6 Creatinine 0.63 POC Glucose 118 H Random Glucose 77 Estimat Average Glucose Hemoglobin A1c % Prolactin 27.9 12/07/22 02/02/23 07/21/24 05:27 14:43 09:59 Sodium 136 139 138 Potassium 4.2 4.4 3.9 Creatinine 0.58 0.63 0.64 POC Glucose Random Glucose 78 90 75 Estimat Average Glucose 94 Hemoglobin A1c % 4.9 Prolactin 30.9 H 08/17/24 05/28/25 07/18/25 09:01 10:23 14:51 Sodium 142 Potassium 3.7 Creatinine 0.65 POC Glucose Random Glucose 99 Estimat Average Glucose 100 Hemoglobin A1c % 5.1 Prolactin 57.1 H 3.8 MRI head/brain wo con 03/17/23 FINDINGS: Diffusion-weighted images demonstrate no evidence of acute abnormalities. No intracranial hemorrhage is identified. The ventricles and sulci are normal in size and configuration. A minimal number scattered supratentorial punctate T2 hyperintensities are visualized and are of doubtful clinical significance as similar findings are a frequently encountered asymptomatic finding. Normal flow-related signal intensity is identified in the major intracranial vessels and dural sinuses. The orbits and globes are normal in appearance. Minimal mucosal thickening and retained secretions are noted in a single anterior left ethmoid air cell and mild mucosal thickening is noted in the left frontal sinus and no mastoid effusions identified. Thin section unenhanced images of the pituitary demonstrate vague elevated T1 weighted signal intensity over region measuring approximately 8 mm lateral by 6 mm SI by 6 mm AP centered within the left lateral aspect of the pituitary. Findings are associated with asymmetric leftward enlargement of the pituitary which partially effaces the suprasellar cistern and comes to within 2 mm proximity of the optic chiasm without definitive mass effect upon the optic chiasm. The adjacent cavernous sinus is normal in appearance. IMPRESSION: *Findings suspicious for an 8mm x 6 mm x 6 mm (lateral x SI x AP) microadenoma within the left lateral aspect of the pituitary. This finding is either stable or slightly increased in size by 1-2 mm in craniocaudal extent compared with MRI of the brain 11/15/2019. This finding results in mild asymmetric enlargement of the left lateral aspect of the pituitary which partially effaces the suprasellar cistern without impingement upon the optic chiasm. As clinically indicated, this finding may be visualized to better damage employing IV contrast-enhanced pituitary protocol MRI. The current examination utilizes thin section imaging of the pituitary without intravenous contrast. *Mild retained secretions and mucosal thickening within the anterior left ethmoid air cells and left frontal sinus. [facility] Medical History Migraine Seizure disorder Asthma Surgical History No pertinent past surgical history Family History Father No problems noted. Mother No problems noted. Social History Household Members: Family Housing: Apartment Do you presently have visiting nurse or other home services: No Alcohol intake: never Patient Tobacco Use Status: Never used Tobacco e-Cigarette/Vaping Use: Never Used service: No Current occupational status: disabled Physical Exam Vital Signs: BMI result Body Mass Index 51.6 Assessment & Plan Assessment & Plan (1) Pituitary adenoma: Code(s): D35.2 - Benign neoplasm of pituitary gland Category: Medical Plan: Pituitary microadenoma found incidentally on MRI brain WWO at [facility] in Nov 2019: pitutary microadenoma (0.6 x 0.5 x 0.4 cm), repeated MRI brain WO at [facility] in March 2023: 8 x 6 x 6mm left lateral pituitary adenoma. Based on chart review, labs at [facility] in 2019: CBC, CMP, TSH, cortisol, Lipids all WNL. It is unclear when the patient is started taking cabergoline, or what doses she had been taking. It seems that per chart review she is taking right now is 0.5 mg weekly, but patient can not recall the medication dose or when she started taking it. Patient does look cushingoid, she has a buffalo hump and crowe faces, but otherwise had no other signs of excess ACTH/cortisol. I do think it is reasonable to check salivary cortisol x2 and dexamethasone suppression test to rule out New Holstein syndrome. I do not think that test for hormone deficiency is required at this point given the size of the pituitary adenoma, but we consider if it has increased in size after the next MRI. I also think that is reasonable to order another MRI to assess for pituitary macroadenoma size at it seems that since 11/02/2019 23 it has increased slightly in size. Plan Repeat pituitary MRI Order midnight salivary cortisol x2 Obtain dexamethasone suppression test Written instructions for these tests were provided to the patient Follow-up in 3 months Plan 60 minutes spent reviewing previous records, labs, imaging, education and documenting in the chart Orders: Orders Cortisol Random Today D35.2 - Benign neoplasm of pituitary gland Saliva Cortisol 08/01/25 D35.2 - Benign neoplasm of pituitary gland MR abdomen wo/w con Today D35.2 - Benign neoplasm of pituitary gland Prolactin 3 Months D35.2 - Benign neoplasm of pituitary gland Saliva Cortisol Today D35.2 - Benign neoplasm of pituitary gland Medications: New dexamethasone 1 mg PO ONCE 1 tab 0RF D35.2 - Benign neoplasm of pituitary gland Discontinued clotrimazole 1% Discontinued Reason: Patient Completed Course 1 appl topical BID 4 weeks 30 grams 0RF clotrimazole 1% Discontinued Reason: Order 1 appl topical BID 2 weeks 45 grams 0RF Patient Instructions: Instructions for Dexamethasone Suppression Test and Midnight Salivary Cortisol Collection 1. Dexamethasone Suppression Test Medication: You will be given a tablet called dexamethasone. When to take: Take the dexamethasone tablet at exactly 11:00 PM the night before your blood test. How to take: Swallow the tablet with a small amount of water. Do not eat or drink anything else after taking the tablet until your blood is drawn in the morning. Blood test: Come to the lab the next morning (usually between 8:00 and 9:00 AM) for your blood draw as instructed. 2. Midnight Salivary Cortisol Collection Preparation: Do not eat, drink, brush your teeth, or use tobacco for at least 30 minutes before collecting your saliva sample. Avoid vigorous exercise and stressful activities in the evening before collection. When to collect: Collect your saliva sample at exactly midnight (12:00 AM). How to collect: Open the saliva collection kit provided. Allow saliva to pool in your mouth, then gently spit into the collection tube until it reaches the fill line. Do not cough or clear your throat into the tube. Close the tube tightly. After collection: Label the tube with your name, date, and time of collection. Store the sample in the refrigerator until you bring it to the lab or as instructed. If you have any questions or need to reschedule, please contact our office. Coding Level of Care Code New Pt Level 5 (06165) Diagnoses Pituitary adenoma D35.2
[2025-07-31 16:11] VITALS: BP 128/76; PULSE 70; O2SAT 96; BMI 51.6
== END 2025-07-31 17:01 | disposition home or self-care (01) ==
LOC: HO.ENCR 16:01
PROVIDERS: Visit Provider Student in an Organized Health Care Education/Training Program
DX: D35.2 Benign neoplasm of pituitary gland (principal)
CPT/HCPCS: 99205

== ENCOUNTER → 2025-07-31 16:00 | Outpatient (BNVA) | payer MEDICAID, SELFPAY | PROVIDERS: Visit Provider Student in an Organized Health Care Education/Training Program | DX: D35.2 Benign neoplasm of pituitary gland (principal) | CPT/HCPCS: 99202 ==

== ENCOUNTER → 2025-08-24 09:14 | Outpatient (BNV) | payer MEDICAID, SELFPAY | PROVIDERS: Visit Provider Specialist | DX: D35.2 Benign neoplasm of pituitary gland (principal) | CPT/HCPCS: 70553 ==

== ENCOUNTER 2025-08-24 09:18 | Outpatient (REF) | payer MEDICAID, SELFPAY ==
--- NOTE | ~2025-08-24 | MR_ITS ---
CLINICAL HISTORY: D35.2 - Benign neoplasm of pituitary gland MR Brain with and without gadolinium Comparison: None provided Findings: No restricted diffusion. No intra-axial mass or hemorrhage. No midline shift. No hydrocephalus. Vascular flow voids are intact. There are no areas of abnormal enhancement. The pituitary gland enhances homogeneously. The infundibulum is midline. Cavernous sinus structures are symmetric and without abnormality. Orbital contents are unremarkable. The sinuses and mastoid air cells are clear. No focal bone lesion. IMPRESSION: Unremarkable brain /Pituitary MRI. This document has been electronically signed by: Elia Drake MD on 08/25/2025 08:52:59
== END 2025-08-24 09:19 | disposition home or self-care (01) ==
LOC: HO.MRI 09:18
PROVIDERS: Visit Provider Student in an Organized Health Care Education/Training Program
DX: D35.2 Benign neoplasm of pituitary gland (principal)
CPT/HCPCS: 70553; A9585